=== PATIENT | male | born 1965 | race Caucasian/White ===

== ENCOUNTER 2022-12-18 10:18 | Emergency (ER) | payer OTHER, SELFPAY ==
--- NOTE | 2022-12-18 10:31 | ED.DENTAL ---
HPI - Dental/Oral General Chief complaint: Dental/Oral Stated complaint: tooth inf Source: patient and RN notes reviewed History of Present Illness HPI Narrative: 57 yo M presents to urgent care with complaints of left upper tooth pain. Pt states he was brushing his teeth 2 nights ago and his tooth broke at that time. Pt woke up yesterday morning with some pain in the area so he took some Advil. Pt states he was busy all day yesterday moving his son to college but when he got home last night, he had to take a couple more Advil. Pt states he woke up this morning and noticed more swelling to his left side of face and continued pain. Pt denies any fevers or chills but reports feeling clammy earlier. Denies any chest pain, SOB, trouble swallowing, or vomiting. Related Data Allergies Allergy/AdvReac Type Severity Reaction Status Date / Time No Known Allergies Allergy Verified 12/18/22 10:40 Review of Systems Review of Systems: CONSTITUTIONAL: Denies fever, chills, or sweats. EYES: Denies visual changes, redness, or discharge. ENT: Denies otalgia and sore throat. Left upper tooth pain CARDIOVASCULAR: Denies chest pain, palpitations, or edema. RESPIRATORY: Denies cough or dyspnea. GASTROINTESTINAL: Denies abdominal pain, nausea, vomiting, or diarrhea. GENITOURINARY: Denies dysuria or hematuria. SKIN: Denies rash or itching. MUSCULOSKELETAL: Denies back pain, joint pain, or myalgia. NEUROLOGIC: Denies headache, numbness, or weakness. Pertinent positives per HPI. PMFSH Social History Social History Smoking status: Heavy tobacco smoker Alcohol intake: current Comments At the time of my signature, I reviewed and agree with the nursing past medical, surgical, social, and family history. There is no relevant family history pertinent to the patient complaint. Exam Narrative: GENERAL: This is a well-nourished, well-developed patient, in no apparent distress. HEAD: normocephalic, atraumatic. EYES: Sclera clear/white. Vision is grossly intact. EARS: External ears normal, auditory canals clear and without drainage, TMs normal without perforation. Hearing grossly intact. MOUTH: loose tooth #14 with adjacent swelling. Left sided cheek swelling. NOSE: External nose normal with no obvious nasal discharge, nares without redness, no rhinorrhea. THROAT: Mucous membranes moist, posterior pharynx clear. NECK: Neck supple, non-tender without lymphadenopathy, masses or thyromegaly. CARDIOVASCULAR: Regular rate RESPIRATORY: No respiratory distress SKIN: warm, intact with no suspicious lesions or rash, good texture and turgor. NEURO: awake, alert, and oriented to person, place and time. There were no obvious focal neurologic abnormalities. Course Course Level of Care: Express Care Visit Vital Signs Vital signs: Reviewed MDM - Dental/Oral MDM Narrative Medical decision making narrative: Take antibiotic until it's gone. Brushing teeth at least twice daily with gentle flossing. Avoid temperature extremes when you eat. Salt gargle to rinse your mouth after every meal You may apply ice to the face to reduce pain/swelling. For pain, you may take: Tylenol 650-1000mg by mouth every 4-6 hours. Do not exceed 4000mg in 24 hours. Advil (Ibuprofen) 600 mg by mouth every 6 hours. Do not exceed 2400mg in 24 hours. Also, recommend regular dental check up one-two times a year to prevent tooth decay and other periodontal disease. Follow-up with the dentist as soon as possible. See the list provided Pt has a dentist he will call tomorrow. Differential Diagnosis Differential diagnosis: Likely gingival abscess, toothache and dental abscess Critical Care Time Critical Care Time Critical Care Time: No Discharge Plan Discharge Clinical Impression: Dental abscess Patient Disposition: Home, Self-Care Condition: Stable Instructions: Antibiotic Form, Dental Abscess (ED) Additional Instructions: Take ant
[2022-12-18 10:34] VITALS: BP 155/76; PULSE 67; RESP 20; TEMP 36.6; O2SAT 99
== END 2022-12-18 10:49 | disposition home or self-care (01) ==
PROVIDERS: Emergency Provider Nurse Practitioner Family; PCP Family Medicine
DX: K04.7 Periapical abscess without sinus (principal)
CPT/HCPCS: 99203; G0463

== ENCOUNTER 2024-11-06 09:34 | Outpatient (CLI) | payer OTHER, SELFPAY ==
--- OUTSIDE RECORDS SUMMARY | 2024-11-06 09:41 | XMS_ITS | Clinical Summary ---
Author Organization [facility] Address [address] [place] [address] Phone Care Team Providers Care Still Operator Gin Name Role Phone Lopez Barrett MD Primary Care Provider Allergies No known active allergies Social History Tobacco Use Types Packs/Day Years Used Date Smoking Tobacco: Every Day Sex and Gender Information Value Date Recorded Sex Assigned at Not on file Legal Sex Male 11:00 PM CDT Gender Identity Not on file Sexual Orientation Not on file Last Filed Vital Signs Vital Sign Reading Time Taken Comments Blood Pressure 140/86 03/17/2017 11:00 AM WINDOWS DEPLOYMENT TECHNICIAN Pulse 80 03/17/2017 11:00 AM WINDOWS DEPLOYMENT TECHNICIAN Temperature - - Respiratory Rate - - Oxygen Saturation - - Inhaled Oxygen Concentration - - Weight 127 kg (280 lb) 03/17/2017 10:42 AM WINDOWS DEPLOYMENT TECHNICIAN Height 193 cm (6' 4) 03/17/2017 10:42 AM WINDOWS DEPLOYMENT TECHNICIAN Body Mass Index 34.08 03/17/2017 10:42 AM WINDOWS DEPLOYMENT TECHNICIAN Plan of Treatment Health Maintenance Due Date Last Done Comments Hepatitis C Virus (HCV) Screening 1965 TdaP Immunization 1964 Hepatitis B Immunization (1 of 3 - 19+ 3-dose series) 11/21/1983 Colonoscopy 2009 Colorectal Cancer Screening 2009 Cologuard 2014 Immunochemical Fecal Occult Blood 2014 Pneumococcal Immunization (5 0+ years) (1 of 1 - PCV) 2014 Zoster Immunization (1 of 2) 2014 PSA Discussion 11/21/2019 Influenza Immunization (#1) 2023 SARS-COV-2 Immunization ( - 2023-25 season) 2023 Respiratory Syncytial Virus (RSV) Immunization (Adult) (1 - 1-dose 75+ series) 11/21/2039 Meningococcal Immunization (ACWY) Aged Out No longer eligible based on patient's age to complete this topic Pneumococcal Immunization Combined Aged Out No longer eligible based on patient's age to complete this topic Rotavirus Immunization Aged Out No lo nger eligible based on patient's age to complete this topic Care Teams Still Operator Gin Relationship Specialty Start Date End Date Lopez Barrett MD [address] [place] [address] PCP - General Family Medicine 03/17/17
--- OUTSIDE RECORDS SUMMARY | 2024-11-06 09:41 | XMS_ITS | Encounter Summary ---
Author Organization [facility] Address [address] [place] [address] Care Team Providers Care Sprayer Automatic Spray Machine Name Role Phone Unavailable Primary Care Provider Unavailabl e Encounter Details Date Type Department Care Team (Late st Contact Info) Description 11/05/2024 Lab Requisition [facility] - DermPath Lab [address] [place] [phone] Loly Gabriel MD [address] [place] [address] Social History Tobacco Use Types Packs/Day Years Used Date Smoking Tobacco: Never Assessed Sex and Gender Information Value Date Recorded Sex Assigned at Not on file Legal Sex Male 9:35 AM CDT Gender Identity Not on file Sexual Orientation Not on file documented as of this encounter Plan of Treatment Scheduled Orders Name Type Priority Associated Diagnoses Orde r Schedule DERMATOPATHOLOGY Pathology Cytology Routine Ordered: 11/05/2024 documented as of this encounter Visit Diagnoses Not on filedocumented in this encounter
--- OUTSIDE RECORDS SUMMARY | 2024-11-06 09:41 | XMS_ITS | Clinical Summary ---
Author Organization [facility] Address [address] [facility] [place] [address] Care Team Providers Care Computer Bookkeeper Name Role Phone Unavailable Primary Care Provider Unavailabl e Source Comments [facility],non-owned Affiliates and Associated Physician Practices is amultiple site organization consisting of ambulatory clinics and hospital sitesin [place], [place], [place] and [place]. This disclosure is being madepursuant to the Care Everywhere program and may not contain all information available regarding this patient. Last updated 18.[facility] Encounters Date Type Department Care Team Description 11/05/2024 Lab Requisition [facility] - DermPath Lab [address] [facility] [place] [phone] Loly Gabriel MD from Last 3 Months Social History Tobacco Use Types Packs/Day Years Used Date Smoking Tobacco: Never Assessed Sex and Gender Information Value Date Recorded Sex Assigned at Not on file Legal Sex Male 9:35 AM CDT Gender Identity Not on file Sexual Orientation Not on file Plan of Treatment Health Maintenance Due Date Last Done Comments COLOGUARD (AGES 45-75) - COL ON CA SCREENING 1964 COLON MONITORING 1964 COLONOSCOPY - COLON CA SCREENING 1964 CT COLONOGRAPHY - COLON CA SCREENING 1964 Colorectal Cancer Screening 1964 FIT - COLON CA SCREENING 1964 FLEX SIG - COLON CA SCREENING 1964 LIPID TESTING 1964 HIV SCREENING 11/21/1979 HEPATITIS C SCREENING 11/16/1982 DTAP/TDAP/TD VACCINES (1 - Tdap) 11/21/1983 HEPATITIS B VACCINE (1 of 3 - 19+ 3-dose series) 11/21/1983 PNEUMOCOCCAL VACCINE 50+ (1 of 1 - PCV) 2014 ZOSTER VACCINE (1 of 2) 2014 COVID-19 VACCINE (1 - 2023-2 5 season) 2023 DEPRESSION SCREENING 05/01/2024 INFLUENZA VACCINE (#1) 2024 HIB VACCINE Aged Out No longer eligi ble based on patient's age to complete this topic HPV VACCINE Aged Out No longer eligi ble based on patient's age to complete this topic MENINGOCOCCAL (Group B) VACC INE SHARED DECISION-MAKING Aged Out No longer eligibl e based on patient's age to complete this topic MENINGOCOCCAL GROUPS A/C/Y/W VACCINE Aged Out No longer eligible b ased on patient's age to complete this [place] [address] [place] [address] [employer]
--- OUTSIDE RECORDS SUMMARY | 2024-11-06 09:41 | XMS_ITS | Encounter Summary ---
Author Organization [facility] Address [address] [facility] [place] [address] Care Team Providers Care Blow Mold Technician Name Role Phone Unavailable Primary Care Provider Unavailabl e Encounter Details Date Type Department Care Team (Late st Contact Info) Description 08/01/2024 Lab Requisition [facility] - DermPath Lab [address] [facility] [place] [address] Angela Mckenna MD [address] [facility] [address] [place] [address] Social History Tobacco Use Types Packs/Day Years Used Date Smoking Tobacco: Never Assessed Sex and Gender Information Value Date Recorded Sex Assigned at Not on file Legal Sex Male 9:35 AM CDT Gender Identity Not on file Sexual Orientation Not on file documented as of this encounter Plan of Treatment Not on file documented as of this encounter Procedures Procedure Name Priority Date/Time Associated Diagnosis Comments DERMATOPATHOLOGY Routine 08/01/2024 9:17 AM CDT documented in this encounter Results * DERMATOPATHOLOGY (08/01/2024 9:17 AM CDT) Case Report Dermatopathology Report Case: [id number] Authorizing Provider: Angela Mckenna MD Collected: 08/01/2024 09:17 AM Ordering Location: [facility] Physician [facility] - Received: 08/02/2024 08:00 AM DermPath Lab Pathologist: Ashli Deleon MD Specimen: Skin, left ant scalp 2:55 PM CDT DERMATOPATHOLOGY LABORATORY Final Diagnosis Specimen A. 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 The specimen consists of a shave biopsy measuring [id number] mm. Jar 0. 2:55 PM CDT DERMATOPATHOLOGY LABORATORY Microscopic Description Specimen A. SKIN, left ant scalp: The epidermis shows parakeratosis, full thickness disorderly maturation of keratinocytes, mitoses at different levels, and dyskeratotic cells. Focal nests are present in the dermis. 2:55 PM CDT DERMATOPATHOLOGY LABORATORY Disclaimer An external and internal positive and negative controls are appropriate for the histochemical, immunohistochemical and immunofluorescence stain(s) in this case (if any), except where stated explicitly. The performance characteristics of the stain(s) cited in this report were developed and its performance characteristic determined by the Dermatopathology Laboratory at [facility], directed by Dr. Isaak Santizo. These tests need not be, and therefore are not, approved by the [place] Food and Drug Administration. The tests are used for clinical purposes. Billing Codes Specimen Charges Stain Charges 36173 1 2:55 PM CDT DERMATOPATHOLOGY LABORATORY Embedded Images 2:55 PM CDT DERMATOPATHOLOGY LABORATORY Pathology/Cytolo gy TISSUE SPECIMEN FROM SKIN / Unknown 08/01/2024 9:17 AM CDT 08/02/2024 8:00 AM CDT us Angela Mckenna MD LAB - PATHOLOGY/CYTOLOGY OR DERABLES Final Result DERMATOPATHOLOGY LABORATORY [facility] - Department of Dermatology [address], [address] [phone] documented in this encounter Visit Diagnoses Not on filedocumented in this encounter
[2024-11-06 10:02] LABS: Hematocrit 47.3 % (42.0-52.0); Hemoglobin 15.8 g/dL (14.0-18.0); Immature Granulocyte Percent A 0.2 % (0-0.5); Lymphocytes Absolute Auto 1.85 K/mm3 (0.9-3.2); Mean Corpuscular HGB Conc 33.4 g/dl (32-36); Mean Corpuscular Hemoglobin 31.4 pg (26-34); Mean Corpuscular Volume 94.0 fl (80-100); Nucleated Red Blood Cells Absolute Auto 0.000 K/mm3 (0.0-0.012); Nucleated Red Blood Cells Perc 0.0 % (0.0-0.2); Platelet Count Result 198 k/mm3 (150-375); Red Blood Count 5.03 M/mm3 (4.6-6.20); White Blood Count 6.0 K/mm3 (4.5-10.0)
[2024-11-06 10:41] LABS: Add Urine Microscopic? NO; Appearance Urine Clear (Clear); Glucose Urine UA Negative (Negative); Leukocyte Esterase Ur Negative LEU/UL (Negative); Nitrate Urine Negative (Negative); Specific Grav Ur 1.016 (1.001-1.035)
[2024-11-06 10:50] LABS: Thyroid Stimulating Hormone Reflex 0.700 uIU/mL (0.465-4.68)
[2024-11-06 16:03] LABS: Alanine Aminotransferase 28 U/L (6-50); Albumin Level 3.9 g/dL (3.5-5.1); Alkaline Phosphatase 61 U/L (38-126); Anion Gap 6 mmol/L (4-12); Aspartate Amino Transferase 26 U/L (17-59); Bilirubin,Total 0.3 mg/dL (0.2-1.3); Blood Urea Nitrogen 11 mg/dL (9-20); Calcium 9.3 mg/dL (8.4-10.2); Carbon Dioxide 25 mmol/L (22-30); Chloride 109 mmol/L (98-107); Cholesterol 143 mg/dL (0-200); Estimated Glomerular Filt Rate > 60; Glucose 106 mg/dL (65-110); HDL Direct 35 mg/dL; Potassium 4.0 mmol/L (3.4-5.0); Sodium 140 mmol/L (137-145); Total Protein 6.7 g/dL (6.3-8.2); Triglycerides 83 mg/dL (<150)
[2024-11-06 16:34] LABS: Prostate Specific Antigen 0.8 ng/mL (< OR = 4.0)
== END 2024-11-06 09:35 | disposition home or self-care (01) ==
LOC: ANHLAB 09:36
PROVIDERS: PCP Family Medicine
DX: Z00.00 Encounter for general adult medical examination without abnormal findings (principal)
CPT/HCPCS: 36415; 80053; 80061; 81003; 84153; 84443; 85025; G0103

== ENCOUNTER 2024-11-07 11:52 | Inpatient (IN) | payer OTHER, SELFPAY ==
[2024-11-07] VITALS (20 sets, daily range): BP systolic 131–167; BP diastolic 65–89; PULSE 43–58; RESP 8–19; TEMP 36.4–36.8; O2SAT 98–100; BMI 38.6
--- NOTE | ~2024-11-07 | XR_ITS ---
EXAM/PROCEDURE: XR chest 1V portable - 11/07/2024 12:30 CDT HISTORY: 58 years old Male with chest pain TECHNIQUE: AP view(s) of the chest. COMPARISON: None available. FINDINGS: LUNGS/ PLEURA: No focal consolidation. No appreciable pneumothorax or large pleural effusion. HEART/ MEDIASTINUM: Heart appears normal in size. BONES: No acute osseous abnormality. OTHER: Visualized upper abdomen is unremarkable. IMPRESSION: No acute process. Reviewed, dictated and finalized at location A. IMPRESSION: No acute process.
--- NOTE | 2024-11-07 11:53 | ECG_ITS ---
Test Date: 2024-11-07 12:02:07 Measurements Intervals [place] Rate: 47 P: 56 ID: [id number] QRS: 42 QRSD: 108 T: 113 QT: 440 QTc: 392 Interpretive Statements SINUS BRADYCARDIA WITH FIRST DEGREE AV BLOCK NONSPECIFIC ST & T-WAVE ABNORMALITY No previous ECG available for comparison Electronically Signed On 11-07-2024 13:18:04 CDT by Maurisio Pierce M.D.
--- OUTSIDE RECORDS SUMMARY | 2024-11-07 11:54 | XMS_ITS | Clinical Summary ---
Author Organization [facility] Address [address] [place] [address] Phone Care Team Providers Care Director Veterinary Name Role Phone Lopez Barrett MD Primary [...] Comments Blood Pressure 140/86 03/17/2017 11:00 AM MORTGAGE PROFESSIONAL Pulse 80 03/17/2017 11:00 AM MORTGAGE PROFESSIONAL Temperature - - Respiratory Rate - - Oxygen Saturation - - Inhaled Oxygen Concentration - - Weight 127 kg (280 lb) 03/17/2017 10:42 AM MORTGAGE PROFESSIONAL Height 193 cm (6' 4) 03/17/2017 10:42 AM MORTGAGE PROFESSIONAL Body Mass Index 34.08 03/17/2017 10:42 AM MORTGAGE PROFESSIONAL Plan of Treatment Health Maintenance Due Date [...] age to complete this topic Care Teams Director Veterinary Relationship Specialty Start Date End Date Lopez Barrett MD [address] [place] [address] PCP - General Family Medicine 03/17/17
--- OUTSIDE RECORDS SUMMARY | 2024-11-07 11:54 | XMS_ITS | Encounter Summary ---
Author Organization [facility] Address [address] [facility] [place] [address] Care Team Providers Care Emergency Vehicle Operations Instructor Name Role Phone Unavailable Primary Care Provider Unavailabl e Encounter Details Date Type Department Care Team (Late st Contact Info) Description 11/05/2024 Lab Requisition [facility] Lab [address] [place] [phone] Loly Gabriel MD [address] [place] [address] Social History Tobacco Use Types Packs/Day Years Used Date Smoking Tobacco: Never Assessed Sex and Gender Information Value Date Recorded Sex Assigned at Not on file Legal Sex Male 9:35 AM CDT Gender Identity Not on file Sexual Orientation Not on file documented as of this encounter Plan of Treatment Pending Results Name Type Priority Associated Diagnoses Date /Time DERMATOPATHOLOGY Pathology Cytology Routine 11/05/2024 3:32 PM CDT documented as of this encounter Visit Diagnoses Not on filedocumented in this encounter
--- OUTSIDE RECORDS SUMMARY | 2024-11-07 11:54 | XMS_ITS | Encounter Summary ---
Author Organization [facility] Address [address] [place] [address] Care Team Providers Care Ict Programmer Name Role Phone Unavailable Primary Care Provider Unavailabl e Encounter Details Date Type Department Care Team (Late st Contact Info) Description 08/01/2024 Lab Requisition [facility] - DermPath Lab [address] [facility] [place] [address] Angela Mckenna MD [address] [facility] [address] [place] [address] Social History Tobacco Use Types Packs/Day Years [...] AM CDT) Case Report Dermatopathology Report Case: [id number] Authorizing Provider: Angela Mckenna MD Collected: 08/01/2024 09:17 AM Ordering Location: [facility] Physician [facility] - Received: 08/02/2024 08:00 AM DermPath Lab [...] specimen consists of a shave biopsy measuring 25f23k1 mm. Jar 0. 2:55 PM CDT DERMATOPATHOLOGY [...] characteristic determined by the Dermatopathology Laboratory at [facility], directed by Dr. Isaak Santizo. These tests need not be, and therefore are not, approved by the [place] Food and Drug Administration. The tests are used for clinical purposes. Billing Codes Specimen Charges Stain Charges 28266 1 2:55 PM CDT DERMATOPATHOLOGY LABORATORY Embedded Images 2:55 PM CDT DERMATOPATHOLOGY LABORATORY Pathology/Cytolo gy TISSUE SPECIMEN FROM SKIN / Unknown 08/01/2024 9:17 AM CDT 08/02/2024 8:00 AM CDT us Angela Mckenna MD LAB - PATHOLOGY/CYTOLOGY OR DERABLES Final Result DERMATOPATHOLOGY LABORATORY [facility] - Department of Dermatology [address] [phone] documented in this encounter Visit Diagnoses Not on filedocumented in this encounter
--- OUTSIDE RECORDS SUMMARY | 2024-11-07 11:54 | XMS_ITS | Clinical Summary ---
Author Organization [facility] Address [address] [facility] [place] [address] Care Team Providers Care Nicking Machine Operator Name Role Phone Unavailable Primary Care Provider Unavailabl e Source Comments [facility],non-owned Affiliates and Associated Physician Practices is amultiple site organization consisting of ambulatory clinics and hospital sitesin [place], [place], [place] and [place]. This disclosure is being madepursuant to the Care Everywhere program and may not contain all information available regarding this patient. Last updated 18.[facility] Encounters Date Type Department Care Team Description 11/05/2024 Lab Requisition [facility] - DermPath Lab [address] [facility] [place] [phone] Loly Gabriel MD from Last 3 Months [...] to complete this [place] [address] [place] [address] [employer]
[2024-11-07 12:11] LABS: Hematocrit 48.5 % (42.0-52.0); Hemoglobin 16.0 g/dL (14.0-18.0); Immature Granulocyte Percent A 0.2 % (0-0.5); Lymphocytes Absolute Auto 1.74 K/mm3 (0.9-3.2); Mean Corpuscular HGB Conc 33.0 g/dl (32-36); Mean Corpuscular Hemoglobin 31.1 pg (26-34); Mean Corpuscular Volume 94.2 fl (80-100); Nucleated Red Blood Cells Absolute Auto 0.000 K/mm3 (0.0-0.012); Nucleated Red Blood Cells Perc 0.0 % (0.0-0.2); Platelet Count Result 199 k/mm3 (150-375); Red Blood Count 5.15 M/mm3 (4.6-6.20); White Blood Count 5.6 K/mm3 (4.5-10.0)
[2024-11-07 12:26] LABS: INR 1.0; Prothrombin Time 12.8 Seconds (11.1-14.7)
[2024-11-07 12:27] LABS: Partial Thromboplastin Time 26.4 Seconds (22.3-36.8)
[2024-11-07 12:30] LABS: Alanine Aminotransferase 25 U/L (6-50); Albumin Level 4.3 g/dL (3.5-5.1); Alkaline Phosphatase 61 U/L (38-126); Anion Gap 6 mmol/L (4-12); Aspartate Amino Transferase 29 U/L (17-59); Bilirubin,Total 0.5 mg/dL (0.2-1.3); Blood Urea Nitrogen 13 mg/dL (9-20); Calcium 9.5 mg/dL (8.4-10.2); Carbon Dioxide 25 mmol/L (22-30); Chloride 108 mmol/L (98-107); Estimated CRCL calculation 114 ml/min; Estimated Glomerular Filt Rate > 60; Glucose 112 mg/dL (65-110); Lipase 66 U/L (23-300); Potassium 4.1 mmol/L (3.4-5.0); Sodium 139 mmol/L (137-145); Total Protein 7.3 g/dL (6.3-8.2)
[2024-11-07 12:41] LABS: Troponin I 0.446 ng/mL (0.000-0.034)
--- NOTE | 2024-11-07 12:55 | ED_ITS ---
HPI - Chest Pain General Chief Complaint: Chest Pain Stated Complaint: chest pain Time Seen by Provider: 11/07/24 12:44 History of Present Illness HPI narrative: Pt presents with episode of chest pain last night that lasted 15 minutes and resolved after tylenol. Pt went to Dr Barrett's office and was sent to ED. Pt had another similar episode a couple of weeks ago when mowing yard that resolved with rest. Pt is smoker but no other risk factors for cad. Pt not having Cp now. Related Data Allergies Allergy/AdvReac Type Severity Reaction Status Date / Time No Known Allergies Allergy Verified 11/07/24 13:26 Review of Systems 2 Review of Systems: All systems reviewed & are unremarkable except as noted in HPI and below PMFSH Social History Social History Smoking status: Never smoker Alcohol intake: never Substance use: never Do You Feel Safe in your Home?: Yes Lack of Transportation: No Lack of Food: Never True Current Housing: I Have Housing Concerned About Future Housing: No Difficulty Paying Gas/Electric Bills: No Difficulty Paying for Meds: No Currently Unemployed: No Education: Trade/Vocational Certificate Difficulty w/ Childcare or Family Care: No Spiritual care concerns: No Exam 2 Const: General: healthy appearing and no acute distress Nutritional Appearance: well nourished Orientation/consciousness: patient oriented x3 Limitations: no limitations HENMT: Head: normal to inspection Chest: Chest palpation & inspection: normal inspection of the chest Resp: Effort & Inspection: normal respiratory effort Auscultation: clear to auscultation bilaterally Cardio: Rate: regular rate Rhythm: regular rhythm GI: Auscultation: normal bowel sounds Skin: General skin exam: normal color Wounds: no wounds Neuro: General: patient oriented x3, moves all extremities and no focal motor deficits Cranial nerves: Yes Nystagmus not present Speech: normal speech Extrem: General: normal to inspection and no clubbing, cyanosis or edema Psych: Mental Status: mental status grossly normal Affect: normal affect Attitude: cooperative Course Vital Signs Vital signs: Vital Signs Temperature 97.6 F 11/07/24 12:09 Pulse Rate 58 L 11/07/24 12:09 Respiratory Rate 16 11/07/24 12:09 Blood Pressure 167/89 H 11/07/24 12:09 Pulse Oximetry 99 11/07/24 12:09 Oxygen Delivery Room Air 11/07/24 12:09 Temperature 97.9 F 11/07/24 17:30 Pulse Rate 43 L 11/07/24 17:30 Respiratory Rate 16 11/07/24 17:30 Blood Pressure 141/72 H 11/07/24 17:30 Pulse Oximetry 100 11/07/24 17:30 Oxygen Delivery Room Air 11/07/24 14:49 MDM - Chest Pain MDM Narrative Medical decision making narrative: Pt had episode of CP last night that resolved after 15 minutes. Pt had another similar episode when mowing 2 weeks ago. Pt pain free now. ekg shows t wave inversion in 1 avl. roberto work up for unstable angina. trop .446 remainder of labs fine. Discussed with Dr Deluca and agrees to consult. Discussed with Mariana Valadez agrees to admit. Lab Data 11/07/24 17:51 11/07/24 12:05 Labs: Lab Results 11/07/24 Range/Units 12:05 WBC 5.6 (4.5-10.0) K/mm3 RBC 5.15 (4.6-6.20) M/mm3 Hgb 16.0 (14.0-18.0) g/dL Hct 48.5 (42.0-52.0) % MCV 94.2 (80-100) fl MCH 31.1 (26-34) pg MCHC 33.0 (32-36) g/dl RDW 13.1 (11.5-14.5) % Plt Count 199 (150-375) k/mm3 MPV 8.9 (7.4-10.4) fl Immature Gran % (Auto) 0.2 (0-0.5) % Neut % (Auto) 58.8 (45.5-73.1) % Lymph % (Auto) 31.0 (18.3-44.2) % [place] % (Auto) 7.5 (2.6-8.5) % Eos % (Auto) 2.3 (0-4.4) % Baso % (Auto) 0.2 (0.2-1.2) % Lymph # (Auto) 1.74 (0.9-3.2) K/mm3 [place] # (Auto) 0.4 (0.1-0.6) K/mm3 Eos # (Auto) 0.1 (0-0.3) K/mm3 Baso # (Auto) 0.0 (0.0-0.1) K/mm3 Abs Immat Gran (auto) 0.01 (0.00-0.031) K/mm3 Absolute Neuts (auto) 3.3 (1.3-6.7) K/mm3 Absolute Nucleated RBC 0.000 (0.0-0.012) K/mm3 Nucleated RBC % 0.0 (0.0-0.2) % PT 12.8 (11.1-14.7) Seconds INR 1.0 APTT 26.4 (22.3-36.8) Seconds Sodium 139 (137-145) mmol/L Potassium 4.1 (3.4-5.0) mmol/L Chloride 108 H (98-107) mmol/L Carbon Dioxide 25 (22-30) mmol/L Anion Gap 6 (4-12) mmol/L BUN 13 (9-20) mg/dL Creatinine 0.90 (0.7-1.3) mg/dL Estim Creat Clear Calc 114 ml/min Estimated GFR > 60 (59 - ) Glucose 112 H (65-110) mg/dL Calcium 9.5 (8.4-10.2) mg/dL Total Bilirubin 0.5 (0.2-1.3) mg/dL AST 29 (17-59) U/L ALT 25 (6-50) U/L Alkaline Phosphatase 61 (38-126) U/L Troponin I 0.446 H* (0.000-0.034) ng/mL NT-Pro-B Natriuret Pep 863 H (19.9-100) pg/mL Total Protein 7.3 (6.3-8.2) g/dL Albumin 4.3 (3.5-5.1) g/dL Lipase 66 (23-300) U/L Critical Care Time Critical Care Time Critical Care Time: Yes Total Critical Care Time: 40 Discharge Plan Discharge Clinical Impression: Acute non-ST elevation myocardial infarction (NSTEMI) Patient Disposition: Still a Patient Condition: Improved
[2024-11-07 13:05] LABS: NT Pro B Type Natriuretic Pept 863 pg/mL (19.9-100)
[2024-11-07] MEDS: ASPIRIN 81 MG CHEWABLE TABLET 324 MG PO (13:17)
[2024-11-07] MEDS: ACETAMINOPHEN 325 MG TABLET 650 MG PO (13:18)
[2024-11-07] MEDS: NITROGLYCERIN OINTMENT 1 INCH DOSE TRANSDERM (13:20)
--- OUTSIDE RECORDS SUMMARY | 2024-11-07 13:24 | XMS_ITS | Encounter Summary ---
Author Organization [facility] Address [address] [facility] [place] [address] Care Team Providers Care Floor Refinisher Name Role Phone Unavailable Primary Care Provider Unavailabl e Encounter Details Date Type Department Care Team (Late st Contact Info) Description 11/05/2024 Lab Requisition [facility] Lab [address] [place] [phone] Loly Gabriel MD [address] [place] [address] Social History Tobacco Use Types [...]
--- OUTSIDE RECORDS SUMMARY | 2024-11-07 13:24 | XMS_ITS | Clinical Summary ---
Author Organization [facility] Address [address] [place] [address] Care Team Providers Care Candlemaker Name Role Phone Unavailable Primary Care Provider Unavailabl e Source Comments [facility],non-owned Affiliates and Associated Physician Practices is amultiple site organization consisting of ambulatory clinics and hospital sitesin [place], [place], [place] and [place]. This disclosure is being madepursuant to the Care Everywhere program and may not contain all information available regarding this patient. Last updated 18.[facility] Encounters Date Type Department Care Team Description 11/05/2024 Lab Requisition [facility] - DermPath Lab [address] [place] [id number] Loly Gabriel MD from Last 3 Months [...] to complete this [place] [address] [employer]
--- OUTSIDE RECORDS SUMMARY | 2024-11-07 13:24 | XMS_ITS | Clinical Summary ---
Author Organization [facility] Address [address] [place] [address] Phone Care Team Providers Care Tool And Equipment Rental Clerk Name Role Phone Lopez Barrett MD Primary [...] Comments Blood Pressure 140/86 03/17/2017 11:00 AM ACID DUMPER Pulse 80 03/17/2017 11:00 AM ACID DUMPER Temperature - - Respiratory Rate - - Oxygen Saturation - - Inhaled Oxygen Concentration - - Weight 127 kg (280 lb) 03/17/2017 10:42 AM ACID DUMPER Height 193 cm (6' 4) 03/17/2017 10:42 AM ACID DUMPER Body Mass Index 34.08 03/17/2017 10:42 AM ACID DUMPER Plan of Treatment Health Maintenance Due Date [...] age to complete this topic Care Teams Tool And Equipment Rental Clerk Relationship Specialty Start Date End Date Lopez Barrett MD [address] [place] [address] PCP - General Family Medicine 03/17/17
--- OUTSIDE RECORDS SUMMARY | 2024-11-07 13:24 | XMS_ITS | Encounter Summary ---
Author Organization [facility] Address [address] [place] [address] Care Team Providers Care Food General Manager Name Role Phone Unavailable Primary Care Provider Unavailabl e Encounter Details Date Type Department Care Team (Late st Contact Info) Description 08/01/2024 Lab Requisition [facility] - DermPath Lab [address] [facility] [place] [address] Angela Mckenna MD [address] [facility] [address] [place] [address] Social History Tobacco Use Types Packs/Day Years [...] AM CDT) Case Report Dermatopathology Report Case: [id number] Authorizing Provider: Angela Mckenna MD Collected: 08/01/2024 09:17 AM Ordering Location: [facility] - Received: 08/02/2024 08:00 AM DermPath [...] specimen consists of a shave biopsy measuring [id number] mm. Jar 0. 2:55 PM CDT DERMATOPATHOLOGY [...] characteristic determined by the Dermatopathology Laboratory at [facility], directed by Dr. Isaak Santizo. These tests need not be, and therefore are not, approved by the [place] Food and Drug Administration. The tests are used for clinical purposes. Billing Codes Specimen Charges Stain Charges 79653 1 2:55 PM CDT DERMATOPATHOLOGY LABORATORY Embedded Images 2:55 PM CDT DERMATOPATHOLOGY LABORATORY Pathology/Cytolo gy TISSUE SPECIMEN FROM SKIN / Unknown 08/01/2024 9:17 AM CDT 08/02/2024 8:00 AM CDT us Angela Mckenna MD LAB - PATHOLOGY/CYTOLOGY OR DERABLES Final Result DERMATOPATHOLOGY LABORATORY [facility] - Department of Dermatology [address], [address] Floor [address] [phone] documented in this encounter Visit Diagnoses Not on filedocumented in this encounter
[2024-11-07] MEDS: ENOXAPARIN 100 MG/ML SYRINGE 99 MG SUB-Q (13:35)
[2024-11-07] MEDS: ENOXAPARIN 30 MG/0.3 ML SYRINGE SUB-Q (13:36)
--- NOTE | 2024-11-07 15:05 | P.CONCA_ITS ---
Assessment and Plan Assessment and plan (1) Acute non-ST elevation myocardial infarction (NSTEMI): Code(s): I21.4 - Non-ST elevation (NSTEMI) myocardial infarction Status: Acute Plan -NSTEMI -Sinus bradycardia Plan: -Patient had chest pain with exertion in the past but now chest pain at rest with troponin elevation concerning for ACS. Recommend cardiac catheterization to further evaluate coronaries. Risks and benefits of procedure were discussed with the patient and he is agreeable to proceed. He is chest pain-free at this time. Plan for catheterization in a.m. tomorrow. Keep NPO at midnight -Trend troponin to peak -EKG p.r.n. for any chest pain -Patient received therapeutic Lovenox in the ER. Start heparin after 12 hours from last dose Lovenox -Aspirin 325 mg p.o. administered in the ER. Continue 81 mg p.o. daily -Start atorvastatin 80 mg daily -Check FLP -TTE today -Check and replace electrolytes to keep potassium greater than 4 and magnesium greater than 2 History of Present Illness History of Present Illness Consult date/time: 11/07/24 15:05 Reason For Visit: NSTEMI Narrative: 58-year-old male patient with history of obstructive sleep apnea on CPAP, hypertension, tobacco use presents with chief complaints of chest pain. Patient states he had an episode of left-sided chest pain last night that lasted for about 15 minutes and was resolved with Tylenol. Pain is a tightness across his chest without any radiation to neck, arm, jaw, back. No associated symptoms, aggravating or relieving factors. No change in pain with deep breaths or change in position. He reports 2 other episode of chest pain with exertion prior to this episode. One episode of chest pain occurred when he was mowing his yard that resolved with rest. A 2nd episode occurred when he was in the poor and also resolved with rest. Patient presented to his PCPs office today as scheduled and was sent to the ER for evaluation for this chest pain. No shortness of breath, dizziness, lightheadedness, leg swelling, recent weight gain, presyncope, syncope, palpitations, orthopnea, PND, fever, chills, abdominal pain, headache, nausea, emesis. Workup: Troponin: 0.446 NT proBNP: 863 EKG: Sinus bradycardia with rate of 47, nonspecific ST T wave abnormalities Chest x-ray: No acute cardiopulmonary pathology Past cardiac workup: Exercise treadmill test in 2017: Negative maximal stress for chest pain; borderline EKG changes Review of Systems 2 Review of Systems: Complete review of systems was performed and pertinent positives are reported in the HPI. [facility] Social History Social History Smoking status: Never smoker Alcohol intake: never Substance use: never Do You Feel Safe in your Home?: Yes Lack of Transportation: No Lack of Food: Never True Current Housing: I Have Housing Concerned About Future Housing: No Difficulty Paying Gas/Electric Bills: No Difficulty Paying for Meds: No Currently Unemployed: No Education: Trade/Vocational Certificate Difficulty w/ Childcare or Family Care: No Spiritual care concerns: No Meds Home Medications and Allergies Home Medications ?Medication ?Instructions ?Recorded ?Confirmed ?Type tadalafil 5 mg tablet (Cialis) 5 mg PO DAILY #90 tabs 09/12/24 11/07/24 Rx Allergies Allergy/AdvReac Type Severity Reaction Status Date / Time No Known Allergies Allergy Verified 11/07/24 13:26 Vital Signs Vital Signs - 24 hr 11/07/24 12:09 11/07/24 12:34 11/07/24 12:49 Temperature 36.4 C Pulse Rate 58 L 49 L 57 L Respiratory Rate 16 16 12 Blood Pressure 167/89 H Pulse Oximetry 99 100 99 Oxygen Delivery Room Air 11/07/24 13:00 11/07/24 13:02 11/07/24 13:16 Temperature Pulse Rate 48 L 52 L 46 L Respiratory Rate 8 L 11 L 12 Blood Pressure 156/86 H Pulse Oximetry 98 98 100 Oxygen Delivery 11/07/24 13:25 11/07/24 13:32 11/07/24 13:33 Temperature Pulse Rate 50 L 45 L 52 L Respiratory Rate 16 17 Blood Pressure 159/83 H Pulse Oximetry Oxygen Delivery 11/07/24 13:45 11/07/24 13:48 11/07/24 14:09 Temperature Pulse Rate 47 L 45 L 56 L Respiratory Rate 14 9 L 19 Blood Pressure 155/80 H Pulse Oximetry Oxygen Delivery 11/07/24 14:42 11/07/24 14:49 Temperature 36.6 C Pulse Rate 52 L 52 L Respiratory Rate 16 16 Blood Pressure 162/75 H Pulse Oximetry 99 99 Oxygen Delivery Room Air Exam 2 Narrative: General: Alert oriented x3, no acute distress Neck: Supple, no JVD Chest: Bilaterally clear to auscultation, no rales or rhonchi Cardiac: S1, S2 +, regular rate, regular rhythm, no murmurs or rubs Extremities: No pedal edema, no skin rash Neurologic: Alert and oriented x3, no focal neurological deficits Results Labs and Meds 11/07/24 12:05 11/07/24 12:05 Lab results: Cardiac Enzymes 11/07/24 Range/Units 12:05 AST 29 (17-59) U/L Troponin I 0.446 H* (0.000-0.034) ng/mL Coagulation 11/07/24 Range/Units 12:05 PT 12.8 (11.1-14.7) Seconds APTT 26.4 (22.3-36.8) Seconds CBC 11/07/24 Range/Units 12:05 WBC 5.6 (4.5-10.0) K/mm3 RBC 5.15 (4.6-6.20) M/mm3 Hgb 16.0 (14.0-18.0) g/dL Hct 48.5 (42.0-52.0) % Plt Count 199 (150-375) k/mm3 Lymph # (Auto) 1.74 (0.9-3.2) K/mm3 Leake # (Auto) 0.4 (0.1-0.6) K/mm3 Eos # (Auto) 0.1 (0-0.3) K/mm3 Baso # (Auto) 0.0 (0.0-0.1) K/mm3 Comprehensive Metabolic Panel 11/07/24 Range/Units 12:05 Sodium 139 (137-145) mmol/L Potassium 4.1 (3.4-5.0) mmol/L Chloride 108 H (98-107) mmol/L Carbon Dioxide 25 (22-30) mmol/L BUN 13 (9-20) mg/dL Creatinine 0.90 (0.7-1.3) mg/dL Glucose 112 H (65-110) mg/dL Calcium 9.5 (8.4-10.2) mg/dL AST 29 (17-59) U/L ALT 25 (6-50) U/L Alkaline Phosphatase 61 (38-126) U/L Total Protein 7.3 (6.3-8.2) g/dL Albumin 4.3 (3.5-5.1) g/dL Patient Weight 11/07/24 23:59 Weight 129.3 kg
--- NOTE | 2024-11-07 15:40 | ECHO_ITS ---
Patient Info Name: Neil Jimenez Age: 58 years : 1965 Gender: Male Ht: 76 in Wt: 285 lbs BSA: 2.67 m2 HR: 40 bpm BP: 162 / 75 mmHg Technical Quality: Good Exam Date: 11/07/2024 3:52 PM Patient Status: I Admit Date: 11/07/2024 Exam Type: CA echo doppler color flow Complete two-dimensional, color flow and Doppler transthoracic echocardiogram is performed with contrast to opacify the left ventricle and to improve the deliniation of the left ventricle endocardial borders. Staff Referring Physician: Niyah Collazo III Transport Tech: Benja Shirley Attending Provider: Sunil Ohara Contrast/Agitated Saline Contrast/Ag. Saline: Definity Amount: 2.00 ml Administered By: Suha Shirley Existing IV Access: Yes IV Access Condition: patent with no signs of infiltration Summary 1. There is normal biventricular size and systolic function. 2. There is mild biatrial enlargement. 3. There are no significant valvular abnormalities. Left Ventricle The left ventricle is normal in size and systolic function. There is moderate concentric left ventricular hypertrophy. The left ventricular ejection fraction is visually estimated to be 55-60%. There are no regional wall motion abnormalities. Right Ventricle The right ventricle is normal in size and systolic function. Left Atria The left atrium is mildly dilated. Right Atria The right atrium is mildly dilated. Atrial Septum The atrial septum is normal. Aortic Valve The aortic valve is trileaflet and opens well. There is no aortic regurgitation. Pulmonic Valve The pulmonic valve is not well visualized. There is mild pulmonic valve regurgitation. Mitral Valve The mitral valve is normal. Tricuspid Valve The tricuspid valve is normal. There is trace tricuspid regurgitation. Pericardium/Pleural Pericardium is normal in appearance with no evidence for significant pericardial effusion. Inferior Vena Cava Normal inferior vena cava with >50% collapse upon inspiration consistent with normal right atrial pressure, 3 mmHg. Aorta The aortic root at the level of the sinus of Valsalva measures 3.9 cm in diameter. Left Ventricular Outflow Tract Name Value Normal LVOT 2D LVOT Diameter 2.5 cm LVOT Doppler LVOT Peak Velocity 122 cm/s LVOT Peak Gradient 6 mmHg LVOT Mean Gradient 3 mmHg LVOT VTI 27 cm LVOT VTI/AV VTI Ratio 0.8 LVOT Stroke Volume 134 ml LVOT CO 5.9 l/min LVOT CI 2.2 l/min/m2 Pulmonic Valve Name Value Normal PV Doppler PV Peak Velocity 110 cm/s PV Peak Gradient 5 mmHg PV Regurgitation Doppler SD Peak End Diastolic Velocity 79 cm/s Mitral Valve Name Value Normal MV Diastolic Function MV E Peak Velocity 83 cm/s MV A Peak Velocity 53 cm/s MV E/A 1.5 MV Decel Time (PW) 234 ms Tricuspid Valve Name Value Normal TV Regurgitation Doppler TR Peak Velocity 206 cm/s TR Peak Gradient 17 mmHg Estimated PAP/RSVP RA Pressure 3 mmHg <=5 PA Systolic Pressure 20 mmHg <36 RV Systolic Pressure 20 mmHg <36 Aortic Valve Name Value Normal AV Doppler AV Peak Velocity 138 cm/s AV Peak Gradient 8 mmHg AV Mean Gradient 4 mmHg AV VTI 34 cm AV Area (Cont Eq VTI) 4.0 cm2 >=3.0 AV Area (Cont Eq Jerman) 4.3 cm2 AV DI (Jerman) 0.88 AV Regurgitation 2D LVOT Area 4.9 cm2 Ventricles Name Value Normal LV Dimensions 2D/MM IVS Diastolic Thickness (2D) 1.4 cm 0.6-1.0 LVID Diastole (2D) 5.2 cm 4.2-5.8 LVIW Diastolic Thickness (2D) 1.5 cm 0.6-1.0 LVID Systole (2D) 4.0 cm 2.5-4.0 LVOT Diameter 2.5 cm LV Mass (2D Cubed) 339.15 g 88.00-224.00 LV Mass Index (2D Cubed) 127 g/m2 49-115 Relative Wall Thickness (2D) 0.59 <=0.42 LV Fractional Shortening/Ejection Fraction 2D/MM LV Fractional Shortening (2D) 28 % 25-43 LV EF (2D Teichholz) 48 % LV Diastolic Volume (4C MOD) 219 ml LV EF (4C MOD) 58 % LV Diastolic Volume (2C MOD) 194 ml LV EF (2C MOD) 57 % LV Diastolic Volume (BP MOD) 207 ml 62-150 LV Diastolic Volume Index (BP MOD) 78 ml/m2 34-74 LV Systolic Volume (BP MOD) 90 ml 21-61 LV Systolic Volume Index (BP MOD) 34 ml/m2 11-31 LV EF (BP MOD) 57 % 52-72 LV Diastolic Length (4C) 10.7 cm LV Systolic Length (4C) 8.8 cm LV Stroke Volume (4C MOD) 127 ml Atria Name Value Normal LA Dimensions LA Volume (4C A-L) 104 ml LA Volume (BP A-L) 99 ml RA Dimensions RA Systolic Major Weldon Length (4C) 5.9 cm 2.1-2.7 RA Area (4C) 20.4 cm2 <=18.0 Report Signatures
[2024-11-07 16:03] LABS: Troponin I 0.439 ng/mL (0.000-0.034)
--- NOTE | 2024-11-07 16:16 | P.HP_ITS ---
H&P: HPI History of Present Illness Date/Time: 11/07/24 16:16 Chief Complaint: chest pain Narrative: 58-year-old male history of NATHAN on CPAP, basal cell carcinoma status post resection a few days ago, high blood pressure without diagnosis of hypertension presents the hospital with chest pain. Patient states the 1st time he had chest pain was about a week ago whenever he was doing yd work, which was relieved with rest. Today he states that he was sleeping when he was woken up with chest pain shortness a few minutes and then resolved. He presented to his PCP and recommended that he go to the hospital. Lab work shows a troponin of 0.439 followed by a 0.446, pro BNP of 863, chest no acute process, EKG shows sinus Andre a with first-degree AV block. Patient was seen by Cardiology and started on heparin drip. Review of Systems Review of Systems: 12 systems were reviewed and are negativ e except for as per HPI. [facility] Social History Social History Smoking status: Never smoker Alcohol intake: never Substance use: never Do You Feel Safe in your Home?: Yes Lack of Transportation: No Lack of Food: Never True Current Housing: I Have Housing Concerned About Future Housing: No Difficulty Paying Gas/Electric Bills: No Difficulty Paying for Meds: No Currently Unemployed: No Education: Trade/Vocational Certificate Difficulty w/ Childcare or Family Care: No Spiritual care concerns: No Meds Home Medications and Allergies Home Medications ?Medication ?Instructions ?Recorded ?Confirmed ?Type tadalafil 5 mg tablet (Cialis) 5 mg PO DAILY #90 tabs 09/12/24 11/07/24 Rx Allergies Allergy/AdvReac Type Severity Reaction Status Date / Time No Known Allergies Allergy Verified 11/07/24 13:26 Vital Signs Vital Signs - 24 hr 11/07/24 12:09 11/07/24 12:34 11/07/24 12:49 Temperature 97.6 F Pulse Rate 58 L 49 L 57 L Respiratory Rate 16 16 12 Blood Pressure 167/89 H Pulse Oximetry 99 100 99 Oxygen Delivery Room Air 11/07/24 13:00 11/07/24 13:02 11/07/24 13:16 Temperature Pulse Rate 48 L 52 L 46 L Respiratory Rate 8 L 11 L 12 Blood Pressure 156/86 H Pulse Oximetry 98 98 100 Oxygen Delivery 11/07/24 13:25 11/07/24 13:32 11/07/24 13:33 Temperature Pulse Rate 50 L 45 L 52 L Respiratory Rate 16 17 Blood Pressure 159/83 H Pulse Oximetry Oxygen Delivery 11/07/24 13:45 11/07/24 13:48 11/07/24 14:09 Temperature Pulse Rate 47 L 45 L 56 L Respiratory Rate 14 9 L 19 Blood Pressure 155/80 H Pulse Oximetry Oxygen Delivery 11/07/24 14:42 11/07/24 14:49 Temperature 97.9 F Pulse Rate 52 L 52 L Respiratory Rate 16 16 Blood Pressure 162/75 H Pulse Oximetry 99 99 Oxygen Delivery Room Air Exam Narrative: General: well appearing, appears stated age. HEENT: normocephalic, atraumatic. Mucous membranes moist. EOMI, PERRLA, bilateral sclera anicteric, no conjunctival injection. Scalp dressing clean dry intact. Neck supple without JVD, lymphadenopathy, or bruit. Respiratory: clear to ascultation bilaterally. No rales/rhonic/wheezes. Cardiovascular: Regular rate and rhythm, normal S1-S2 upon ascultation. No murmurs, rubs, or clicks. PMI is nondisplaced, capillary refill less than 3 second. Abdomen: Soft, round, no pulsatile masses, nondistended and nontender. No rebound, no guarding. No CVA tenderness, no hepatosplenomegaly. Bowel sounds present to all four quadrants. No high pitch or tinkling sounds, resonant to percussion. Extremities: No cyanosis, clubbing, or edema present. Pulses are palpable 2/2. Active ROM to all four extremities. Neuro: Alert and orientated x 4. PERRLA. Cranial nerves 2-12 intact without focal deficit. Skin: Warm, dry, and intact, without rash, erythema, or lesion. Psych: pleasant, cooperative, normal speech, normal affect, no hallucinations, no dysarthia H&P: Results Labs Labs: Short CBC 11/07/24 Range/Units 12:05 WBC 5.6 (4.5-10.0) K/mm3 Hgb 16.0 (14.0-18.0) g/dL Hct 48.5 (42.0-52.0) % Plt Count 199 (150-375) k/mm3 BMP 11/07/24 12:05 Sodium 139 Potassium 4.1 Chloride 108 H Carbon Dioxide 25 BUN 13 Creatinine 0.90 Glucose 112 H Calcium 9.5 Cardiac Enzymes 11/07/24 11/07/24 Range/Units 12:05 15:11 Troponin I 0.446 H* 0.439 H* (0.000-0.034) ng/mL Liver Function 11/07/24 Range/Units 12:05 Total Bilirubin 0.5 (0.2-1.3) mg/dL AST 29 (17-59) U/L ALT 25 (6-50) U/L Alkaline Phosphatase 61 (38-126) U/L Albumin 4.3 (3.5-5.1) g/dL Assessment and Plan Assessment and plan (1) Acute non-ST elevation myocardial infarction (NSTEMI): Code(s): I21.4 - Non-ST elevation (NSTEMI) myocardial infarction Status: Acute Assessment and Plan: Cardiology consulted EKG as needed Nitro paste Trend troponins NPO Echo pending Heparin drip Possible stent placement in the morning (2) Bradycardia: Code(s): R00.1 - Bradycardia, unspecified Status: Acute Assessment and Plan: Telemetry monitoring (3) High blood pressure determined by examination: Code(s): I10 - Essential (primary) hypertension Status: Acute Assessment and Plan: No diagnosis of hypertension Follow-up with PCP in 3 months or follow cardiology's recommendations (4) NATHAN (obstructive sleep apnea): Code(s): G47.33 - Obstructive sleep apnea (adult) (pediatric) Status: Acute Assessment and Plan: CPAP p.r.n. Quality VTE Prophylaxis VTE prophylaxis: mechanical ordered and pharmacologic ordered Hospitalist MIPS Advance Care Plan I have confirmed that the patient's Advanced Care Plan is present, code status is documented, or surrogate decision maker is listed in patient medical record.: Yes Medication Reconciliation I have utilized all available resources to obtain, update and review the patients current medications (includes all prescriptions, OTC, herbals, cannabis, and nutritional supplements).: Yes
[2024-11-07] MEDS: PERFLUTREN LIPID MICROSPHERES 1.5 ML VIAL DILUTED TO 10 ML TOTAL VOLUME IV PUSH (16:40)
--- NOTE | 2024-11-07 16:49 | IVDEFINITY ---
Prior to administration of IV Definity the patient was educated on the risks and benefits of the imaging enhancing agent including potential adverse side effects. The patient verbalized understanding. Allergies were verified. No exclusion criteria were identified and at least one of the following inclusion criteria were met: 1) physician request, 2) patient technically difficult to image (per the [place] [employer] Echocardi[employer] guidelines of two or more segments not discernable within the apical view), or 3) questionable left ventricular function. ?
--- NOTE | 2024-11-07 16:50 | ECG_ITS ---
Test Date: 2024-11-07 16:50:29 Measurements Intervals [place] Rate: 43 P: 19 DC: 185 QRS: 29 QRSD: 112 T: 113 QT: 459 QTc: 390 Interpretive Statements SINUS BRADYCARDIA INCOMPLETE RIGHT BUNDLE BRANCH BLOCK NONSPECIFIC ST & T-WAVE ABNORMALITY Electronically Signed On 11-08-2024 11:05:20 CDT by Sj Lopez D.O
[2024-11-07 18:04] LABS: Hematocrit 47.3 % (42.0-52.0); Hemoglobin 15.7 g/dL (14.0-18.0); Immature Granulocyte Percent A 0.3 % (0-0.5); Lymphocytes Absolute Auto 2.04 K/mm3 (0.9-3.2); Mean Corpuscular HGB Conc 33.2 g/dl (32-36); Mean Corpuscular Hemoglobin 31.0 pg (26-34); Mean Corpuscular Volume 93.5 fl (80-100); Nucleated Red Blood Cells Absolute Auto 0.000 K/mm3 (0.0-0.012); Nucleated Red Blood Cells Perc 0.0 % (0.0-0.2); Platelet Count Result 202 k/mm3 (150-375); Red Blood Count 5.06 M/mm3 (4.6-6.20); White Blood Count 6.5 K/mm3 (4.5-10.0)
[2024-11-07 18:18] LABS: INR 1.1; Partial Thromboplastin Time 31.6 Seconds (22.3-36.8); Prothrombin Time 13.6 Seconds (11.1-14.7)
[2024-11-07 18:36] LABS: Troponin I 0.469 ng/mL (0.000-0.034)
[2024-11-07] MEDS: WATER FOR IRRIGATION, STERILE 500 ML BOTTLE (23:50)
[2024-11-08] VITALS (27 sets, daily range): BP systolic 135–173; BP diastolic 67–91; PULSE 41–58; RESP 12–76; TEMP 36.6–36.8; O2SAT 18–100
[2024-11-08] MEDS: HEPARIN SOD/D5W 100 UNITS/ML 25,000 UNITS/250 ML BAG 10 UNITS IV CONT (01:32)
--- NOTE | 2024-11-08 06:45 | PM.PNCARD ---
Progress Note: A&P Assessment and Plan (1) Acute non-ST elevation myocardial infarction (NSTEMI): Code(s): I21.4 - Non-ST elevation (NSTEMI) myocardial infarction Status: Acute (2) Bradycardia: Code(s): R00.1 - Bradycardia, unspecified Status: Acute (3) Hypertension: Code(s): I10 - Essential (primary) hypertension Status: Acute Plan NSTEMI Hypertension-not well controlled Sinus bradycardia-asymptomatic Plan: Cardiac catheterization today. Risks and benefits of the procedure were discussed with patient in detail and he is willing to proceed. He has been NPO since midnight Continue aspirin 81 mg daily Continue atorvastatin 80 mg daily Continue heparin drip TTE Check and replace electrolytes to keep potassium greater than 4 and magnesium greater than 2 Subjective Date/time seen: 11/08/24 06:45 Interval history: Reason for encounter: NSTEMI Relevant history: No chest pain overnight or this morning. No shortness of breath. Telemetry shows sinus bradycardia with rates in the 40s to 50s. Review of Systems Cardiovascular: Comments: As per HPI Respiratory: Comments: As per HPI Exam Narrative: General: Alert oriented x3, no acute distress HEENT: He has a Band-Aid on his left head which is from recent removal of skin cancer on Monday this week. Neck: Supple, no JVD Chest: Bilaterally clear to auscultation, no rales or rhonchi Cardiac: S1, S2 +, regular rate, regular rhythm, no murmurs or rubs Extremities: No pedal edema, no skin rash Neurologic: Alert and oriented x3, no focal neurological deficits Objective Data Vital Signs Vital Signs: Vital Signs - 24 hr 11/07/24 12:09 11/07/24 12:34 11/07/24 12:49 Temperature 36.4 C Pulse Rate 58 L 49 L 57 L Respiratory Rate 16 16 12 Blood Pressure 167/89 H Pulse Oximetry 99 100 99 Oxygen Delivery Room Air 11/07/24 13:00 11/07/24 13:02 11/07/24 13:16 Temperature Pulse Rate 48 L 52 L 46 L Respiratory Rate 8 L 11 L 12 Blood Pressure 156/86 H Pulse Oximetry 98 98 100 Oxygen Delivery 11/07/24 13:25 11/07/24 13:32 11/07/24 13:33 Temperature Pulse Rate 50 L 45 L 52 L Respiratory Rate 16 17 Blood Pressure 159/83 H Pulse Oximetry Oxygen Delivery 11/07/24 13:45 11/07/24 13:48 11/07/24 14:09 Temperature Pulse Rate 47 L 45 L 56 L Respiratory Rate 14 9 L 19 Blood Pressure 155/80 H Pulse Oximetry Oxygen Delivery 11/07/24 14:42 11/07/24 14:49 11/07/24 16:00 Temperature 36.6 C Pulse Rate 52 L 52 L 45 L Respiratory Rate 16 16 Blood Pressure 162/75 H Pulse Oximetry 99 99 Oxygen Delivery Room Air 11/07/24 17:30 11/07/24 18:00 11/07/24 20:00 Temperature 36.6 C 36.8 C Pulse Rate 43 L 58 L 49 L Respiratory Rate 16 16 Blood Pressure 141/72 H 131/65 Pulse Oximetry 100 99 Oxygen Delivery 11/07/24 20:00 11/07/24 20:00 11/07/24 21:06 Temperature Pulse Rate 55 L Respiratory Rate Blood Pressure Pulse Oximetry 98 Oxygen Delivery Room Air Room Air 11/07/24 22:00 11/07/24 23:48 11/08/24 00:00 Temperature 36.8 C Pulse Rate 48 L 54 L Respiratory Rate 18 Blood Pressure 140/67 Pulse Oximetry 97 Oxygen Delivery Room Air 11/08/24 00:00 11/08/24 01:58 11/08/24 02:20 Temperature Pulse Rate 47 L 42 L 54 L Respiratory Rate Blood Pressure Pulse Oximetry 98 Oxygen Delivery 11/08/24 03:40 11/08/24 04:00 11/08/24 04:00 Temperature 36.7 C Pulse Rate 58 L 43 L Respiratory Rate 76 H Blood Pressure 135/72 Pulse Oximetry 18 L Oxygen Delivery Room Air 11/08/24 06:00 Temperature Pulse Rate 48 L Respiratory Rate Blood Pressure Pulse Oximetry Oxygen Delivery Intake/Output Intake/Output: Intake & Output 11/05/24 11/06/24 11/07/24 11/08/24 23:59 23:59 23:59 23:59 Intake Total 0 Balance 0 Meds/Results Medications: Active Medications Generic Name Dose Route Start Last Admin Trade Name Freq PRN Reason Stop Dose Admin Atorvastatin Calcium 80 mg 11/08/24 09:00 Atorvastatin 40 Mg Tablet PO DAILY D[facility] Heparin Sodium (Porcine) 4,000 units 11/07/24 15:49 Heparin Sodium 5,000 Units/Ml Vial IV PUSH PRN PRN aPTT less than 55 seconds Heparin Sodium (Porcine) 4,000 units 11/07/24 15:49 Heparin Sodium 5,000 Units/Ml Vial IV PUSH PRN PRN aPTT 55 - 70 seconds Heparin Sodium/Dextrose 25,000 units in 250 mls @ 10 mls/hr 11/08/24 01:30 11/08/24 01:32 Heparin Sodium/D5w 100 Units/Ml IV CONT 1,000 units/hr .Q24H [facility] 10 mls/hr Administration Protocol 1,000 UNITS/HR Nitroglycerin 1 inch 11/07/24 18:00 11/08/24 06:21 Nitroglycerin Ointment 1 Inch Dose TRANSDERM Not Given Q6HR [facility] Radiology Results: ITS Impressions Chest X-Ray 11/07/24 12:42 IMPRESSION: No acute process. Labs Labs: Laboratory Results - last 24 hr 11/07/24 11/07/24 11/07/24 12:05 15:11 17:51 WBC 5.6 6.5 RBC 5.15 5.06 Hgb 16.0 15.7 Hct 48.5 47.3 MCV 94.2 93.5 MCH 31.1 31.0 MCHC 33.0 33.2 RDW 13.1 13.0 Plt Count 199 202 MPV 8.9 8.9 Immature Gran % (Auto) 0.2 0.3 Neut % (Auto) 58.8 61.1 Lymph % (Auto) 31.0 31.2 [place] % (Auto) 7.5 5.8 Eos % (Auto) 2.3 1.4 Baso % (Auto) 0.2 0.2 Lymph # (Auto) 1.74 2.04 [place] # (Auto) 0.4 0.4 Eos # (Auto) 0.1 0.1 Baso # (Auto) 0.0 0.0 Abs Immat Gran (auto) 0.01 0.02 Absolute Neuts (auto) 3.3 4.0 Absolute Nucleated RBC 0.000 0.000 Nucleated RBC % 0.0 0.0 PT 12.8 13.6 INR 1.0 1.1 APTT 26.4 31.6 Sodium 139 Potassium 4.1 Chloride 108 H Carbon Dioxide 25 Anion Gap 6 BUN 13 Creatinine 0.90 Estim Creat Clear Calc 114 Estimated GFR > 60 Glucose 112 H Calcium 9.5 Total Bilirubin 0.5 AST 29 ALT 25 Alkaline Phosphatase 61 Troponin I 0.446 H* 0.439 H* 0.469 H* NT-Pro-B Natriuret Pep 863 H Total Protein 7.3 Albumin 4.3 Lipase 66
[2024-11-08 07:48] LABS: Hematocrit 46.5 % (42.0-52.0); Hemoglobin 15.5 g/dL (14.0-18.0); Immature Granulocyte Percent A 0.5 % (0-0.5); Lymphocytes Absolute Auto 1.90 K/mm3 (0.9-3.2); Mean Corpuscular HGB Conc 33.3 g/dl (32-36); Mean Corpuscular Hemoglobin 31.6 pg (26-34); Mean Corpuscular Volume 94.9 fl (80-100); Nucleated Red Blood Cells Absolute Auto 0.000 K/mm3 (0.0-0.012); Nucleated Red Blood Cells Perc 0.0 % (0.0-0.2); Platelet Count Result 197 k/mm3 (150-375); Red Blood Count 4.90 M/mm3 (4.6-6.20); White Blood Count 6.1 K/mm3 (4.5-10.0)
[2024-11-08 08:02] LABS: Partial Thromboplastin Time 32.0 Seconds (22.3-36.8)
--- NOTE | 2024-11-08 08:03 | WPDMODSED ---
Moderate Sedation Note-Pt Data Patient Data Allergies Allergy/AdvReac Type Severity Reaction Status Date / Time No Known Allergies Allergy Verified 11/07/24 13:26 Home Medications ?Medication ?Instructions ?Recorded ?Confirmed ?Type tadalafil 5 mg tablet (Cialis) 5 mg PO DAILY #90 tabs 09/12/24 11/07/24 Rx Current Medications: Active Medications Aspirin (Aspirin 81 Mg Enteric Tablet) 81 mg PO QAM DIONISIO Atorvastatin Calcium (Atorvastatin 40 Mg Tablet) 80 mg PO DAILY [facility] Heparin Sodium (Porcine) (Heparin Sodium 5,000 Units/Ml Vial) 4,000 units IV PUSH PRN PRN PRN Reason: aPTT less than 55 seconds Heparin Sodium (Porcine) (Heparin Sodium 5,000 Units/Ml Vial) 4,000 units IV PUSH PRN PRN PRN Reason: aPTT 55 - 70 seconds Heparin Sodium/Dextrose (Heparin Sodium/D5w 100 Units/Ml) 25,000 units in 250 mls @ 10 mls/hr IV CONT .Q24H [facility]; Protocol Last Admin: 11/08/24 01:32 Dose: 1,000 units/hr, 10 mls/hr Nitroglycerin (Nitroglycerin Ointment 1 Inch Dose) 1 inch TRANSDERM Q6HR [facility] Last Admin: 11/08/24 06:21 Dose: Not Given Sedation/Anesthesia: No previous sedation/anesthesia problems (including family history). [facility] Social History Social History Smoking status: Never smoker Alcohol intake: never Substance use: never Do You Feel Safe in your Home?: Yes Lack of Transportation: No Lack of Food: Never True Current Housing: I Have Housing Concerned About Future Housing: No Difficulty Paying Gas/Electric Bills: No Difficulty Paying for Meds: No Currently Unemployed: No Education: Trade/Vocational Certificate Difficulty w/ Childcare or Family Care: No Spiritual care concerns: No Mod Sed Physical Exam Physical Exam Pre Procedural Exam: Normal: Lungs, Heart Rate and Heart Rhythm Hours since solid foods: 12 Hours since liquid intake: 12 Mallampati Classification: class III Internal Medicine - PN: Obj Da Vital Signs Vital Signs: Vital Signs - 24 hr 11/07/24 12:09 11/07/24 12:34 11/07/24 12:49 Temperature 36.4 C Pulse Rate 58 L 49 L 57 L Respiratory Rate 16 16 12 Blood Pressure 167/89 H Pulse Oximetry 99 100 99 Oxygen Delivery Room Air 11/07/24 13:00 11/07/24 13:02 11/07/24 13:16 Temperature Pulse Rate 48 L 52 L 46 L Respiratory Rate 8 L 11 L 12 Blood Pressure 156/86 H Pulse Oximetry 98 98 100 Oxygen Delivery 11/07/24 13:25 11/07/24 13:32 11/07/24 13:33 Temperature Pulse Rate 50 L 45 L 52 L Respiratory Rate 16 17 Blood Pressure 159/83 H Pulse Oximetry Oxygen Delivery 11/07/24 13:45 11/07/24 13:48 11/07/24 14:09 Temperature Pulse Rate 47 L 45 L 56 L Respiratory Rate 14 9 L 19 Blood Pressure 155/80 H Pulse Oximetry Oxygen Delivery 11/07/24 14:42 11/07/24 14:49 11/07/24 16:00 Temperature 36.6 C Pulse Rate 52 L 52 L 45 L Respiratory Rate 16 16 Blood Pressure 162/75 H Pulse Oximetry 99 99 Oxygen Delivery Room Air 11/07/24 17:30 11/07/24 18:00 11/07/24 20:00 Temperature 36.6 C 36.8 C Pulse Rate 43 L 58 L 49 L Respiratory Rate 16 16 Blood Pressure 141/72 H 131/65 Pulse Oximetry 100 99 Oxygen Delivery 11/07/24 20:00 11/07/24 20:00 11/07/24 21:06 Temperature Pulse Rate 55 L Respiratory Rate Blood Pressure Pulse Oximetry 98 Oxygen Delivery Room Air Room Air 11/07/24 22:00 11/07/24 23:48 11/08/24 00:00 Temperature 36.8 C Pulse Rate 48 L 54 L Respiratory Rate 18 Blood Pressure 140/67 Pulse Oximetry 97 Oxygen Delivery Room Air 11/08/24 00:00 11/08/24 01:58 11/08/24 02:20 Temperature Pulse Rate 47 L 42 L 54 L Respiratory Rate Blood Pressure Pulse Oximetry 98 Oxygen Delivery 11/08/24 03:40 11/08/24 04:00 11/08/24 04:00 Temperature 36.7 C Pulse Rate 58 L 43 L Respiratory Rate 76 H Blood Pressure 135/72 Pulse Oximetry 18 L Oxygen Delivery Room Air 11/08/24 06:00 Temperature Pulse Rate 48 L Respiratory Rate Blood Pressure Pulse Oximetry Oxygen Delivery Intake/Output Intake/Output: Intake & Output 11/05/24 11/06/24 11/07/24 11/08/24 23:59 23:59 23:59 23:59 Intake Total 0 450 Balance 0 450 Meds/Results Medications: Active Medications Generic Name Dose Route Start Last Admin Trade Name Freq PRN Reason Stop Dose Admin Aspirin 81 mg 11/08/24 09:00 Aspirin 81 Mg Enteric Tablet PO QAM [facility] Atorvastatin Calcium 80 mg 11/08/24 09:00 Atorvastatin 40 Mg Tablet PO DAILY [facility] Heparin Sodium (Porcine) 4,000 units 11/07/24 15:49 Heparin Sodium 5,000 Units/Ml Vial IV PUSH PRN PRN aPTT less than 55 seconds Heparin Sodium (Porcine) 4,000 units 11/07/24 15:49 Heparin Sodium 5,000 Units/Ml Vial IV PUSH PRN PRN aPTT 55 - 70 seconds Heparin Sodium/Dextrose 25,000 units in 250 mls @ 10 mls/hr 11/08/24 01:30 11/08/24 01:32 Heparin Sodium/D5w 100 Units/Ml IV CONT 1,000 units/hr .Q24H [facility] 10 mls/hr Administration Protocol 1,000 UNITS/HR Nitroglycerin 1 inch 11/07/24 18:00 11/08/24 06:21 Nitroglycerin Ointment 1 Inch Dose TRANSDERM Not Given Q6HR [facility] Radiology Results: ITS Impressions Chest X-Ray 11/07/24 12:42 IMPRESSION: No acute process. Labs 11/08/24 07:42 11/07/24 12:05 Labs: Laboratory Results - last 24 hr 11/07/24 11/07/24 11/07/24 12:05 15:11 17:51 WBC 5.6 6.5 RBC 5.15 5.06 Hgb 16.0 15.7 Hct 48.5 47.3 MCV 94.2 93.5 MCH 31.1 31.0 MCHC 33.0 33.2 RDW 13.1 13.0 Plt Count 199 202 MPV 8.9 8.9 Immature Gran % (Auto) 0.2 0.3 Neut % (Auto) 58.8 61.1 Lymph % (Auto) 31.0 31.2 [place] % (Auto) 7.5 5.8 Eos % (Auto) 2.3 1.4 Baso % (Auto) 0.2 0.2 Lymph # (Auto) 1.74 2.04 [place] # (Auto) 0.4 0.4 Eos # (Auto) 0.1 0.1 Baso # (Auto) 0.0 0.0 Abs Immat Gran (auto) 0.01 0.02 Absolute Neuts (auto) 3.3 4.0 Absolute Nucleated RBC 0.000 0.000 Nucleated RBC % 0.0 0.0 PT 12.8 13.6 INR 1.0 1.1 APTT 26.4 31.6 Sodium 139 Potassium 4.1 Chloride 108 H Carbon Dioxide 25 Anion Gap 6 BUN 13 Creatinine 0.90 Estim Creat Clear Calc 114 Estimated GFR > 60 Glucose 112 H Calcium 9.5 Total Bilirubin 0.5 AST 29 ALT 25 Alkaline Phosphatase 61 Troponin I 0.446 H* 0.439 H* 0.469 H* NT-Pro-B Natriuret Pep 863 H Total Protein 7.3 Albumin 4.3 Lipase 66 11/08/24 07:42 WBC 6.1 RBC 4.90 Hgb 15.5 Hct 46.5 MCV 94.9 MCH 31.6 MCHC 33.3 RDW 13.1 Plt Count 197 MPV 9.0 Immature Gran % (Auto) 0.5 Neut % (Auto) 60.0 Lymph % (Auto) 30.9 [place] % (Auto) 6.4 Eos % (Auto) 2.0 Baso % (Auto) 0.2 Lymph # (Auto) 1.90 [place] # (Auto) 0.4 Eos # (Auto) 0.1 Baso # (Auto) 0.0 Abs Immat Gran (auto) 0.03 Absolute Neuts (auto) 3.7 Absolute Nucleated RBC 0.000 Nucleated RBC % 0.0 PT INR APTT 32.0 Sodium Potassium Chloride Carbon Dioxide Anion Gap BUN Creatinine Estim Creat Clear Calc Estimated GFR Glucose Calcium Total Bilirubin AST ALT Alkaline Phosphatase Troponin I NT-Pro-B Natriuret Pep Total Protein Albumin Lipase ASA Classification/Sedation ASA Classification/Sedation ASA Class: III Emergent: No Risks: Risks, benefits and alternatives explained and patient/family accepted plan for sedation. Patient re-evaluated immediately prior to sedation.
--- NOTE | 2024-11-08 08:04 | WPDHPUPDATE1 ---
History and Physical Update Update Date/Time: 11/08/24 08:04 History and Physical has been reviewed, including an updated exam of the patient. There are NO changes in the patient's condition. Risks, benefits, and alternatives have been discussed and questions answered. Patient agrees to proceed with procedure.
[2024-11-08] MEDS: ASPIRIN 81 MG ENTERIC TABLET PO (08:28)
[2024-11-08] MEDS: ATORVASTATIN 40 MG TABLET 80 MG PO (08:28)
--- NOTE | 2024-11-08 08:36 | P.PNIM_ITS ---
Progress Note: A&P Assessment and Plan (1) Acute non-ST elevation myocardial infarction (NSTEMI): Code(s): I21.4 - Non-ST elevation (NSTEMI) myocardial infarction Status: Acute Assessment and Plan: Cardiology consulted EKG as needed Nitro paste Troponin trend flat NPO Echo EF 55-60% no regional wall motion abnormalities. Heparin drip Planned heart catheterization today (2) Bradycardia: Code(s): R00.1 - Bradycardia, unspecified Status: Acute Assessment and Plan: Telemetry monitoring (3) High blood pressure determined by examination: Code(s): I10 - Essential (primary) hypertension Status: Acute Assessment and Plan: No diagnosis of hypertension Follow-up with PCP in 3 months or follow cardiology's recommendations (4) NATHAN (obstructive sleep apnea): Code(s): G47.33 - Obstructive sleep apnea (adult) (pediatric) Status: Acute Assessment and Plan: CPAP p.r.n. Subjective Date/time seen: 11/08/24 08:36 Interval history: No further chest pain. Currently has a nitropaste. Plan for catheterization this afternoon. Review of Systems Review of Systems: All systems reviewed & are unremarkable except as noted in HPI and below Exam Narrative: General: well appearing, appears stated age. HEENT: normocephalic, atraumatic. Mucous membranes moist. EOMI, PERRLA, Neck supple without JVD, lymphadenopathy, or bruit. Respiratory: clear to ascultation bilaterally. No rales/rhonic/wheezes. Cardiovascular: Regular rate and rhythm, normal S1-S2 upon ascultation. No murmurs, rubs, or clicks. Abdomen: Soft, round, no pulsatile masses, nondistended and nontender. No rebound, no guarding. Extremities: No cyanosis, clubbing, or edema present. Pulses are palpable 2/2. Active ROM to all four extremities. Neuro: Alert and orientated x 4. PERRLA. Cranial nerves 2-12 intact without focal deficit. Skin: Warm, dry, and intact, without rash, erythema, or lesion. Psych: pleasant, cooperative, normal speech, normal affect, no hallucinations, no dysarthia Objective Data Vital Signs Vital Signs: Vital Signs - 24 hr 11/07/24 12:09 11/07/24 12:34 11/07/24 12:49 Temperature 97.6 F Pulse Rate 58 L 49 L 57 L Respiratory Rate 16 16 12 Blood Pressure 167/89 H Pulse Oximetry 99 100 99 Oxygen Delivery Room Air 11/07/24 13:00 11/07/24 13:02 11/07/24 13:16 Temperature Pulse Rate 48 L 52 L 46 L Respiratory Rate 8 L 11 L 12 Blood Pressure 156/86 H Pulse Oximetry 98 98 100 Oxygen Delivery 11/07/24 13:25 11/07/24 13:32 11/07/24 13:33 Temperature Pulse Rate 50 L 45 L 52 L Respiratory Rate 16 17 Blood Pressure 159/83 H Pulse Oximetry Oxygen Delivery 11/07/24 13:45 11/07/24 13:48 11/07/24 14:09 Temperature Pulse Rate 47 L 45 L 56 L Respiratory Rate 14 9 L 19 Blood Pressure 155/80 H Pulse Oximetry Oxygen Delivery 11/07/24 14:42 11/07/24 14:49 11/07/24 16:00 Temperature 97.9 F Pulse Rate 52 L 52 L 45 L Respiratory Rate 16 16 Blood Pressure 162/75 H Pulse Oximetry 99 99 Oxygen Delivery Room Air 11/07/24 17:30 11/07/24 18:00 11/07/24 20:00 Temperature 97.9 F 98.3 F Pulse Rate 43 L 58 L 49 L Respiratory Rate 16 16 Blood Pressure 141/72 H 131/65 Pulse Oximetry 100 99 Oxygen Delivery 11/07/24 20:00 11/07/24 20:00 11/07/24 21:06 Temperature Pulse Rate 55 L Respiratory Rate Blood Pressure Pulse Oximetry 98 Oxygen Delivery Room Air Room Air 11/07/24 22:00 11/07/24 23:48 11/08/24 00:00 Temperature 98.3 F Pulse Rate 48 L 54 L Respiratory Rate 18 Blood Pressure 140/67 Pulse Oximetry 97 Oxygen Delivery Room Air 11/08/24 00:00 11/08/24 01:58 11/08/24 02:20 Temperature Pulse Rate 47 L 42 L 54 L Respiratory Rate Blood Pressure Pulse Oximetry 98 Oxygen Delivery 11/08/24 03:40 11/08/24 04:00 11/08/24 04:00 Temperature 98.1 F Pulse Rate 58 L 43 L Respiratory Rate 76 H Blood Pressure 135/72 Pulse Oximetry 18 L Oxygen Delivery Room Air 11/08/24 06:00 11/08/24 08:13 Temperature 97.9 F Pulse Rate 48 L 44 L Respiratory Rate 20 Blood Pressure 140/69 Pulse Oximetry 97 Oxygen Delivery Intake/Output Intake/Output: Intake & Output 11/05/24 11/06/24 11/07/24 11/08/24 23:59 23:59 23:59 23:59 Intake Total 0 519.7 Balance 0 519.7 Meds/Results Medications: Active Medications Generic Name Dose Route Start Last Admin Trade Name Ethanq PRN Reason Stop Dose Admin Aspirin 81 mg 11/08/24 09:00 11/08/24 08:28 Aspirin 81 Mg Enteric Tablet PO 81 mg QAM DIONISIO Administration Atorvastatin Calcium 80 mg 11/08/24 09:00 11/08/24 08:28 Atorvastatin 40 Mg Tablet PO 80 mg DAILY [facility]IO Administration Heparin Sodium (Porcine) 4,000 units 11/07/24 15:49 11/08/24 08:29 Heparin Sodium 5,000 Units/Ml Vial IV PUSH 4,000 units PRN PRN Administration aPTT less than 55 seconds Heparin Sodium (Porcine) 4,000 units 11/07/24 15:49 Heparin Sodium 5,000 Units/Ml Vial IV PUSH PRN PRN aPTT 55 - 70 seconds Heparin Sodium/Dextrose 25,000 units in 250 mls @ 10 mls/hr 11/08/24 01:30 11/08/24 08:30 Heparin Sodium/D5w 100 Units/Ml IV CONT 1,400 units/hr .Q24H [facility] 14 mls/hr Titration Protocol 1,000 UNITS/HR Nitroglycerin 1 inch 11/07/24 18:00 11/08/24 06:21 Nitroglycerin Ointment 1 Inch Dose TRANSDERM Not Given Q6HR [facility] Radiology Results: ITS Impressions Chest X-Ray 11/07/24 12:42 IMPRESSION: No acute process. Labs Labs: Laboratory Results - last 24 hr 11/07/24 11/07/24 11/07/24 12:05 15:11 17:51 WBC 5.6 6.5 RBC 5.15 5.06 Hgb 16.0 15.7 Hct 48.5 47.3 MCV 94.2 93.5 MCH 31.1 31.0 MCHC 33.0 33.2 RDW 13.1 13.0 Plt Count 199 202 MPV 8.9 8.9 Immature Gran % (Auto) 0.2 0.3 Neut % (Auto) 58.8 61.1 Lymph % (Auto) 31.0 31.2 [place] % (Auto) 7.5 5.8 Eos % (Auto) 2.3 1.4 Baso % (Auto) 0.2 0.2 Lymph # (Auto) 1.74 2.04 [place] # (Auto) 0.4 0.4 Eos # (Auto) 0.1 0.1 Baso # (Auto) 0.0 0.0 Abs Immat Gran (auto) 0.01 0.02 Absolute Neuts (auto) 3.3 4.0 Absolute Nucleated RBC 0.000 0.000 Nucleated RBC % 0.0 0.0 PT 12.8 13.6 INR 1.0 1.1 APTT 26.4 31.6 Sodium 139 Potassium 4.1 Chloride 108 H Carbon Dioxide 25 Anion Gap 6 BUN 13 Creatinine 0.90 Estim Creat Clear Calc 114 Estimated GFR > 60 Glucose 112 H Calcium 9.5 Total Bilirubin 0.5 AST 29 ALT 25 Alkaline Phosphatase 61 Troponin I 0.446 H* 0.439 H* 0.469 H* NT-Pro-B Natriuret Pep 863 H Total Protein 7.3 Albumin 4.3 Lipase 66 11/08/24 07:42 WBC 6.1 RBC 4.90 Hgb 15.5 Hct 46.5 MCV 94.9 MCH 31.6 MCHC 33.3 RDW 13.1 Plt Count 197 MPV 9.0 Immature Gran % (Auto) 0.5 Neut % (Auto) 60.0 Lymph % (Auto) 30.9 [place] % (Auto) 6.4 Eos % (Auto) 2.0 Baso % (Auto) 0.2 Lymph # (Auto) 1.90 [place] # (Auto) 0.4 Eos # (Auto) 0.1 Baso # (Auto) 0.0 Abs Immat Gran (auto) 0.03 Absolute Neuts (auto) 3.7 Absolute Nucleated RBC 0.000 Nucleated RBC % 0.0 PT INR APTT 32.0 Sodium Potassium Chloride Carbon Dioxide Anion Gap BUN Creatinine Estim Creat Clear Calc Estimated GFR Glucose Calcium Total Bilirubin AST ALT Alkaline Phosphatase Troponin I NT-Pro-B Natriuret Pep Total Protein Albumin Lipase
--- NOTE | 2024-11-08 12:51 | P.PCNCC_ITS ---
Cardiac Cath Procedure Note Date of procedure:: 11/08/24 Performing physician:: Carmina Deluca MD Indication:: NSTEMI Brief clinical history:: 58-year-old male patient with history of obstructive sleep apnea on CPAP, hypertension, tobacco use presents with NSTEMI. Procedure Procedure performed:: 1. Right radial artery access 2. Left heart catheterization 3. Coronary angiogram 4. IVUS guided PCI to 100% thrombotic occluded branch of ramus intermedius and 80% stenosis of mid ramus intermedius artery (TAP) Sedation/Medication given:: Fentanyl 150 mcg Versed 1.5 mg Estimated blood loss:: 50 ml Procedure note:: CATHETERIZATION LABORATORY REPORT Procedure Date: 11/08/24 Anesthesia: Versed and Fentanyl were ordered and given in my presence at 10:14 a.m., procedure ended at 12:24 p.m.. Supervision of nurse monitored moderate sedation with Versed and Fentanyl was provided for 130 minutes. Pre-op Diagnosis: NSTEMI Post-op Diagnosis: NSTEMI status post successful IVUS guided PCI to 100% thrombotic stenosis of branch of ramus intermedius artery with 2 mm X 22 mm Medtronic jessa [place] BEATRICE post dilated with 3.0 mm X 15 mm NC balloon to high ATN, and 80% stenosis of mid ramus intermediate artery with 4.0 mm X 18 mm Medtronic jessa [place] BEATRICE post dilated with 4.5 mm X 15 mm NC balloon to high MOISES Procedure(s): Left heart catheterization with coronary angiography Access Site: Right radial artery Brief History and Clinical Indications: All risks, benefits and alternatives to left heart catheterization with or without percutaneous coronary intervention was discussed at length with the patient. Risk of complications including but not limited to bleeding, infection, arrhythmia, stroke, worsening kidney function, blood loss, groin hematoma, limb loss, emergency coronary artery bypass grafting, and even were discussed with the patient and all questions were answered. The patient understood and wished to proceed. Time out called, patient name, date of , medical record number, allergies, procedure performed, identify Timber Setter, patient and staff member concurred with accurate data, procedure carried on. Findings: LEFT HEART CATHETERIZATION FINDINGS: 1. Left main: The left main coronary artery is widely patent with minimal luminal irregularities. 2. Left anterior descending: The proximal LAD is ectatic with 30% stenosis. The mid LAD has luminal irregularities. The distal LAD is diffusely diseased. The LAD gives off diagonal branches which have mild luminal irregularities without any significant obstructive angiographic disease. 3. Ramus intermedius: The mid ramus intermedius has 80% stenosis. The 1st branch of the ramus intermedius has 60% diffuse stenosis in the proximal vessel. The 2nd branch of the ramus intermedius has 100% thrombotic occlusion at the ostium. Antegrade ELLIE 0 to 1 flow. A stump was visible. This is the culprit for patient's presentation. 4. Left circumflex: The left circumflex artery is a dominant artery. It gives of the LPDA. The LCX, the main marginal branches, and LPDA have mild luminal irregularities without any significant obstructive angiographic disease. 5. Right coronary artery: The RCA is non dominant. 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 The RV marginal branch is a small vessel with 70% stenosis at its ostium. The rest of the RCA is very small with mild luminal irregularities and without any significant obstructive angiographic disease. 5. Left ventricle: A. End-diastolic pressure 24 mmHg. B. LV gram deferred. C. No significant gradient across aortic valve on catheter pullback. 6. Opening AO pressure 130/75/90 and closing AO pressure 148/65/90 5 mm Hg. Description of Procedure: Informed consent signed and placed in the chart. Patient transferred to laboratory tester room. Prepped and draped in usual sterile fashion. 2% lidocaine injected subcutaneously in right wrist area. 22-gauge venipuncture catheter used to access the right radial artery with the Seldinger technique. 6-FR slender sheath placed in right radial artery. Nitroglycerin 200mcg, and Heparin 5000U was given intraarterial through the sheath. J wire advanced under fluoroscopy. Five Gu[place]an JL 3.5 diagnostic catheter engaged Left Main Coronary Artery. 5 Guinean JR4 diagnostic catheter engaged Right Coronary Artery. Multiple orthogonal angiogram obtained and reviewed. 5 [place] JR4 diagnostic catheter crossed aortic valve to obtain LVEDP, LV angiogram deferred. Hemostasis was achieved by application of TR band. Procedure Description for PCI: Heparin was used for anticoagulation (ACT maintained above 250) Patient loaded with heparin at 70 units/kg. Six F EBU 3 point guide catheter was used to intubate the left main. 0.014 runthrough coronary wire was passed in to the distal ramus intermedius artery. A 2nd 0.014 runthrough wire was advanced into the branch of ramus intermedius artery. The 100% thrombotic stenosis in the ostium of the branch of ramus intermedius artery was pre-dilated with a 1.5 mm X 15 mm, 2.0 mm X 15 mm, 3.0 mm X 10 mm compliant balloons inflated to high MOISES. The 80% stenosis in the mid ramus intermedius artery was pre-dilated with a 3.0 mm X 10 mm compliant balloon to high MOISES. A bolus of 10 mL of Intracoronary Integrilin was administered into the branch of the ramus intermedius artery. Following this aspiration thrombectomy with penumbra was performed in the same vessel. IVS of the branch of the ramus intermedius and ramus intermedius arteries was performed to evaluate the vessel dimensions and lesion characteristics. A 2.0 mm x 22 mm Medtronic jessa [place] BEATRICE was successfully deployed into the branch of ramus intermedius artery in T and protrusion fashion and the mid and proximal portions of the stent stent were post-dilated with a 3.0 mm X 15 mm NC balloon inflated to high MOISES. A 4.0 mm X 18 mm Medtronic jessa [place] BEATRICE was then deployed in the mid ramus intermedius and post dilated with a 4.5 mm X 12 mm NC balloon inflated to high MOISES. The wire in the branch of the ramus intermedius artery was withdrawn back and rewired into the same vessel through the struts of the stent in the mid ramus intermedius artery. KBI performed with 3.0 mm X 15 mm NC balloon and 4.5 mm X 12 mm NC balloons. Final POT performed 4.5 mm X 12 mm NC balloon in the ramus intermedius stent. Intracoronary NTG was administered. Follow-up angiograms showed an excellent result. Coronary wires and guide-catheter were removed. Pre-procedure - ELLIE 0 flow Post-procedure - ELLIE 3 flow No angiographic complications identified. Assessment: NSTEMI status post successful IVUS guided PCI to 100% thrombotic stenosis of branch of ramus intermedius artery with 2 mm X 22 mm Medtronic jessa [place] BEATRICE (TAP) post dilated with 3.0 mm X 15 mm NC balloon to high MOISES, and 80% stenosis of mid ramus intermediate artery with 4.0 mm X 18 mm Medtronic jessa [place] BEATRICE post dilated with 4.5 mm X 15 mm NC balloon to high MOISES Post Operative Condition: Stable No significant blood loss Disposition: Floor Plan: The patient will be monitored in the recovery area. DAPT for 1 year followed by ASA indefinitely. The above findings were discussed with the referring physician. Continue aggressive medical therapy and risk factor modification. Further recommendations and management per primary cardiology team.
--- NOTE | 2024-11-08 16:04 | PM.DS ---
DS: Admitting Diagnosis Discharge Date 11/08/2024 Admitting Diagnosis chest pain DS: Discharge Diagnosis Discharge Diagnosis (1) Acute non-ST elevation myocardial infarction (NSTEMI): Code(s): I21.4 - Non-ST elevation (NSTEMI) myocardial infarction Status: Acute (2) Bradycardia: Code(s): R00.1 - Bradycardia, unspecified Status: Acute (3) High blood pressure determined by examination: Code(s): I10 - Essential (primary) hypertension Status: Acute (4) NATHAN (obstructive sleep apnea): Code(s): G47.33 - Obstructive sleep apnea (adult) (pediatric) Status: Acute DS: Summary Hospital Course Hospital Course: # Acute non-ST elevation myocardial infarction (NSTEMI): Cardiology consulted EKG as needed Nitro paste Troponin trend flat NPO Echo EF 55-60% no regional wall motion abnormalities. Heparin drip status post cardiac cath 11/08/2024: PCI to 100% thrombotic stenosis of branch of ramus intermedius artery and 80% stenosis of mid ramus intermediate artery dapt, statin echo with no sig valvular abn, mild biatrial enlargement,ef 55-60% ok per cardiology to discharge and follow up as op basis. Time Spent with Patient Time attestation: Total time spent providing and/or coordinating discharge services:35 mins Exam Narrative: General: well appearing, appears stated age. HEENT: normocephalic, atraumatic. Mucous membranes moist. EOMI, PERRLA, Neck supple without JVD, lymphadenopathy, or bruit. Respiratory: clear to ascultation bilaterally. No rales/rhonic/wheezes. Cardiovascular: Regular rate and rhythm, normal S1-S2 upon ascultation. No murmurs, rubs, or clicks. Abdomen: Soft, round, no pulsatile masses, nondistended and nontender. No rebound, no guarding. Extremities: No cyanosis, clubbing, or edema present. Pulses are palpable 2/2. Active ROM to all four extremities. Neuro: Alert and orientated x 4. PERRLA. Cranial nerves 2-12 intact without focal deficit. Skin: Warm, dry, and intact, without rash, erythema, or lesion. Psych: pleasant, cooperative, normal speech, normal affect, no hallucinations, no dysarthia DS: Data Data Completed and Pending Labs on day of discharge: Labs from last 24 hours 11/08/24 11/08/24 11/08/24 12:25 11:43 10:50 WBC RBC Hgb Hct MCV MCH MCHC RDW Plt Count MPV Immature Gran % (Auto) Neut % (Auto) Lymph % (Auto) [place] % (Auto) Eos % (Auto) Baso % (Auto) Lymph # (Auto) [place] # (Auto) Eos # (Auto) Baso # (Auto) Abs Immat Gran (auto) Absolute Neuts (auto) Absolute Nucleated RBC Nucleated RBC % PT INR APTT Activ Coag Time Kaolin 227 H 262 H 268 H Troponin I 11/08/24 11/07/24 07:42 17:51 WBC 6.1 6.5 RBC 4.90 5.06 Hgb 15.5 15.7 Hct 46.5 47.3 MCV 94.9 93.5 MCH 31.6 31.0 MCHC 33.3 33.2 RDW 13.1 13.0 Plt Count 197 202 MPV 9.0 8.9 Immature Gran % (Auto) 0.5 0.3 Neut % (Auto) 60.0 61.1 Lymph % (Auto) 30.9 31.2 [place] % (Auto) 6.4 5.8 Eos % (Auto) 2.0 1.4 Baso % (Auto) 0.2 0.2 Lymph # (Auto) 1.90 2.04 [place] # (Auto) 0.4 0.4 Eos # (Auto) 0.1 0.1 Baso # (Auto) 0.0 0.0 Abs Immat Gran (auto) 0.03 0.02 Absolute Neuts (auto) 3.7 4.0 Absolute Nucleated RBC 0.000 0.000 Nucleated RBC % 0.0 0.0 PT 13.6 INR 1.1 APTT 32.0 31.6 Activ Coag Time Kaolin Troponin I 0.469 H* Procedures/Treatments: Cardiac Cath Procedure Note Date of procedure:: 11/08/24 Performing physician:: Carmina Deluca MD Indication:: NSTEMI Brief clinical history:: 58-year-old male patient with history of obstructive sleep apnea on CPAP, hypertension, tobacco use presents with NSTEMI. Procedure Procedure performed:: 1. Right radial artery access 2. Left heart catheterization 3. Coronary angiogram 4. IVUS guided PCI to 100% thrombotic occluded branch of ramus intermedius and 80% stenosis of mid ramus intermedius artery (TAP) Sedation/Medication given:: Fentanyl 150 mcg Versed 1.5 mg Estimated blood loss:: 50 ml Procedure note:: CATHETERIZATION LABORATORY REPORT Procedure Date: 11/08/24 Anesthesia: Versed and Fentanyl were ordered and given in my presence at 10:14 a.m., procedure ended at 12:24 p.m.. Supervision of nurse monitored moderate sedation with Versed and Fentanyl was provided for 130 minutes. Pre-op Diagnosis: NSTEMI Post-op Diagnosis: NSTEMI status post successful IVUS guided PCI to 100% thrombotic stenosis of branch of ramus intermedius artery with 2 mm X 22 mm Medtronic jessa [place] BEATRICE post dilated with 3.0 mm X 15 mm NC balloon to high ATN, and 80% stenosis of mid ramus intermediate artery with 4.0 mm X 18 mm Medtronic jessa [place] BEATRICE post dilated with 4.5 mm X 15 mm NC balloon to high MOISES Procedure(s): Left heart catheterization with coronary angiography Access Site: Right radial artery Brief History and Clinical Indications: All risks, benefits and alternatives to left heart catheterization with or without percutaneous coronary intervention was discussed at length with the patient. Risk of complications including but not limited to bleeding, infection, arrhythmia, stroke, worsening kidney function, blood loss, groin hematoma, limb loss, emergency coronary artery bypass grafting, and even were discussed with the patient and all questions were answered. The patient understood and wished to proceed. Time out called, patient name, date of , medical record number, allergies, procedure performed, identify Account Group Supervisor, patient and staff member concurred with accurate data, procedure carried on. Findings: LEFT HEART CATHETERIZATION FINDINGS: 1. Left main: The left main coronary artery is widely patent with minimal luminal irregularities. 2. Left anterior descending: The proximal LAD is ectatic with 30% stenosis. The mid LAD has luminal irregularities. The distal LAD is diffusely diseased. The LAD gives off diagonal branches which have mild luminal irregularities without any significant obstructive angiographic disease. 3. Ramus intermedius: The mid ramus intermedius has 80% stenosis. The 1st branch of the ramus intermedius has 60% diffuse stenosis in the proximal vessel. The 2nd branch of the ramus intermedius has 100% thrombotic occlusion at the ostium. Antegrade ELLIE 0 to 1 flow. A stump was visible. This is the culprit for patient's presentation. 4. Left circumflex: The left circumflex artery is a dominant artery. It gives of the LPDA. The LCX, the main marginal branches, and LPDA have mild luminal irregularities without any significant obstructive angiographic disease. 5. Right coronary artery: The RCA is non dominant. 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 The RV marginal branch is a small vessel with 70% stenosis at its ostium. The rest of the RCA is very small with mild luminal irregularities and without any significant obstructive angiographic disease. 5. Left ventricle: A. End-diastolic pressure 24 mmHg. B. LV gram deferred. C. No significant gradient across aortic valve on catheter pullback. 6. Opening AO pressure 130/75/90 and closing AO pressure 148/65/90 5 mm Hg. Description of Procedure: Informed consent signed and placed in the chart. Patient transferred to hemodialysis lab technician room. Prepped and draped in usual sterile fashion. 2% lidocaine injected subcutaneously in right wrist area. 22-gauge venipuncture catheter used to access the right radial artery with the Seldinger technique. 6-FR slender sheath placed in right radial artery. Nitroglycerin 200mcg, and Heparin 5000U was given intraarterial through the sheath. J wire advanced under fluoroscopy. Five Pashto JL 3.5 diagnostic catheter engaged Left Main Coronary Artery. 5 Pashto JR4 diagnostic catheter engaged Right Coronary Artery. Multiple orthogonal angiogram obtained and reviewed. 5 Pashto JR4 diagnostic catheter crossed aortic valve to obtain LVEDP, LV angiogram deferred. Hemostasis was achieved by application of TR band. Procedure Description for PCI: Heparin was used for anticoagulation (ACT maintained above 250) Patient loaded with heparin at 70 units/kg. Six F EBU 3 point guide catheter was used to intubate the left main. 0.014 runthrough coronary wire was passed in to the distal ramus intermedius artery. A 2nd 0.014 runthrough wire was advanced into the branch of ramus intermedius artery. The 100% thrombotic stenosis in the ostium of the branch of ramus intermedius artery was pre-dilated with a 1.5 mm X 15 mm, 2.0 mm X 15 mm, 3.0 mm X 10 mm compliant balloons inflated to high MOISES. The 80% stenosis in the mid ramus intermedius artery was pre-dilated with a 3.0 mm X 10 mm compliant balloon to high MOISES. A bolus of 10 mL of Intracoronary Integrilin was administered into the branch of the ramus intermedius artery. Following this aspiration thrombectomy with penumbra was performed in the same vessel. IVS of the branch of the ramus intermedius and ramus intermedius arteries was performed to evaluate the vessel dimensions and lesion characteristics. A 2.0 mm x 22 mm Medtronic jessa [place] BEATRICE was successfully deployed into the branch of ramus intermedius artery in T and protrusion fashion and the mid and proximal portions of the stent stent were post-dilated with a 3.0 mm X 15 mm NC balloon inflated to high MOISES. A 4.0 mm X 18 mm Medtronic jessa [place] BEATRICE was then deployed in the mid ramus intermedius and post dilated with a 4.5 mm X 12 mm NC balloon inflated to high MOISES. The wire in the branch of the ramus intermedius artery was withdrawn back and rewired into the same vessel through the struts of the stent in the mid ramus intermedius artery. KBI performed with 3.0 mm X 15 mm NC balloon and 4.5 mm X 12 mm NC balloons. Final POT performed 4.5 mm X 12 mm NC balloon in the ramus intermedius stent. Intracoronary NTG was administered. Follow-up angiograms showed an excellent result. Coronary wires and guide-catheter were removed. Pre-procedure - ELLIE 0 flow Post-procedure - ELLIE 3 flow No angiographic complications identified. Assessment: NSTEMI status post successful IVUS guided PCI to 100% thrombotic stenosis of branch of ramus intermedius artery with 2 mm X 22 mm Medtronic jessa [place] BEATRICE (TAP) post dilated with 3.0 mm X 15 mm NC balloon to high MOISES, and 80% stenosis of mid ramus intermediate artery with 4.0 mm X 18 mm Medtronic jessa [place] BEATRICE post dilated with 4.5 mm X 15 mm NC balloon to high MOISES Post Operative Condition: Stable No significant blood loss Disposition: Floor Plan: The patient will be monitored in the recovery area. DAPT for 1 year followed by ASA indefinitely. The above findings were discussed with the referring physician. Continue aggressive medical therapy and risk factor modification. Further recommendations and management per primary cardiology team. Imaging Radiologist's impression: ITS Impressions Chest X-Ray 11/07/24 12:42 IMPRESSION: No acute process. Discharge Plan Discharge Attending physician on discharge: Pepe Riggs Consulting providers: Carmina Deluca Discharging Clinician: Pepe Riggs Anticipated Discharge Date/Time: 11/08/24 16:05 Patient Disposition: Home Activity: as tolerated Diet: heart healthy Discharge Instructions: [facility] [address] [place], [place] [id number] DISCHARGE INSTRUCTIONS - POST PCI Activity 1. No driving until 11/09. 2. No lifting, pushing or pulling more than 5 pounds for 1 week. 3. No strenuous exercise or activity (including sexual activity) until you are released to do so. 4. May shower but no tub baths or swimming pool for 1 week. Avoid commercial hot tubs. They are too hot. Medications DO NOT STOP YOUR MEDICATIONS ONLY YOUR DRYWALL HANGER HELPER CAN STOP THE FOLLOWING MEDICATIONS - PLEASE CALL THE OFFICE WITH QUESTIONS. *Aspirin *Ticagrelor (Brilinta) *Atorvastatin *Lisinopril or ARB *Metoprolol tartrate or succinate *Clopidogrel (Plavix) *Prasugrel (Effient) Important Reminders 1. Keep your stent card in your wallet at all times 2. Follow a heart healthy diet paying extra attention to cholesterol and fats. 3. Stay hydrated. 4. If you have chest pain unrelieved by rest or nitroglycerin (if prescribed) call 911 immediately. 5. If you miss one dose of Brilinta (if prescribed) take a tablet at the next time due. If you miss 2 doses take a tablet when you remember and resume at the next time due. *For any other questions please call the office at [phone]. Office hours are 8AM 4:30PM Monday through Monday. Patient Instructions: Antibiotic Form Patient Language: Slovenian Stand Alone Forms: General Discharge Information Follow-up/Referrals: Billy Jarvis MD [Physician] - 05/21/25 1:15 pm Discharge Medications: New ticagrelor [Brilinta] 90 mg tablet 90 mg PO Q12H Qty: 60 1RF atorvastatin 40 mg Tablet 80 mg PO DAILY Qty: 30 0RF aspirin 81 mg Tablet,Delayed Release (Dr/Ec) 81 mg PO QAM Qty: 30 0RF Discontinued tadalafil [Cialis] 5 mg tablet 5 mg PO DAILY Qty: 90 1RF Date of admission: 11/07/24 13:25 Primary Care Provider: Lopez Barrett Admitting Provider: Sunil Ohara Attending physician on admission: Sunil Ohara Condition: Improved
== END 2024-11-08 18:08 | disposition home or self-care (01) | DRG 322 ==
LOC: ANHED 13:16 → ANHIMU 14:19
PROVIDERS: Internal Medicine Interventional Cardiology; Admitting Provider Internal Medicine; Emergency Provider Emergency Medicine; PCP Family Medicine; Visit Provider Internal Medicine
PROC: 4A023N7 Measurement of Cardiac Sampling and Pressure, Left Heart, Percutaneous Approach (ICD-10-PCS; CPT 93452; principal; 2024-11-08 10:00)
PROC: 027035Z Dilation of Coronary Artery, One Artery with Two Drug-eluting Intraluminal Devices, Percutaneous Approach (ICD-10-PCS; CPT 92973; 2024-11-08 10:00)
PROC: 027035Z Dilation of Coronary Artery, One Artery with Two Drug-eluting Intraluminal Devices, Percutaneous Approach (ICD-10-PCS; 2024-11-08 10:00)
PROC: 027034Z Dilation of Coronary Artery, One Artery with Drug-eluting Intraluminal Device, Percutaneous Approach (ICD-10-PCS; CPT 92928; 2024-11-08 10:00)
DX: I21.4 Non-ST elevation (NSTEMI) myocardial infarction (principal); I25.10 Atherosclerotic heart disease of native coronary artery without angina pectoris; I10 Essential (primary) hypertension; R00.1 Bradycardia, unspecified; G47.33 Obstructive sleep apnea (adult) (pediatric)
CPT/HCPCS: 36415; 71045; 80053; 83690; 83880; 84484; 85025; 85610; 85730; 92973; 92978; 93005; 93306; 93458; 99285; A9270; C1725; C1753; C1757; C1769; C1874; C1887; C1894; C7532; C9600; J1327; J1644; J1650; J2003; J2250; J2305; J3010; J7040; Q9957

== ENCOUNTER 2025-01-10 09:45 | Emergency (ER) | payer OTHER, SELFPAY ==
--- NOTE | ~2025-01-10 | XR_ITS ---
EXAMINATION: XR wrist RT min 3V DATE: 01/10/2025 10:11 INDICATION: Right anterior wrist pain post fall TECHNIQUE: Posteroanterior, ulnar deviation, oblique, and lateral views of the right wrist were obtained. COMPARISON: 05/18/2016 FINDINGS: Carpal bossing with chronic corticated ossicle without evident donor site projecting dorsal to the junction of the second and third carpometacarpal joints most consistent with a normal anatomic variant post styloideum. There is an additional new small ossicle which does not appear corticated along its deep margin projecting dorsal to the carpus and location typical for a mildly displaced dorsal triquetral fracture there is prominent surrounding soft tissue swelling at the dorsal aspect of the carpus. 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 IMPRESSION: 1. Small likely mildly displaced fracture fragment at the dorsal aspect of the carpus likely arising from the triquetrum. Reviewed, dictated and finalized at location A.
[2025-01-10 09:49] VITALS: BP 177/91; PULSE 61; RESP 17; TEMP 36.5; O2SAT 98
--- OUTSIDE RECORDS SUMMARY | 2025-01-10 10:19 | XMS_ITS | Clinical Summary ---
Author Organization [facility] Address [address] [place] [address] Care Team Providers Care Director Software Quality Assurance Name Role Phone Unavailable Primary Care Provider Unavailabl e Source Comments [facility],non-owned Affiliates and Associated Physician Practices is amultiple site organization consisting of ambulatory clinics and hospital sitesin [place], [place], [place]. This disclosure is being madepursuant to the Care Everywhere program and may not contain all information available regarding this patient. Last updated 18.[facility] Encounters Date Type Department Care Team Description 11/05/2024 Lab Requisition [facility] - DermPath Lab [address] [facility] [place] [phone] Loly Gabriel MD from Last 3 Months [...] 11/16/1982 DTAP/TDAP/TD VACCINES (1 - Tdap) 11/21/1983 PNEUMOCOCCAL VACCINE 50+ (1 of 1 - PCV) 2014 ZOSTER VACCINE (1 of 2) 2014 COVID-19 VACCINE (1 - 2023-2 5 season) 2023 DEPRESSION SCREENING 05/01/2024 INFLUENZA VACCINE (#1) 2024 Respiratory Syncytial Virus (RSV) Vaccine Pt: or over 60 yrs (1 - 1-dose 75+ series) 11/21/2039 HEPATITIS B VACCINE Aged Out No longe r eligible based on patient's age to complete this topic HIB VACCINE Aged Out No longer eligi [...] on patient's age to complete this topic Procedures Procedure Name Priority Date/Time Associated Diagnosis Comments DERMATOPATHOLOGY Routine 11/05/2024 3:32 PM CDT from Last 3 Months Results * DERMATOPATHOLOGY (11/05/2024 3:32 PM CDT) Case Report Dermatopathology Report Case: [id number] Authorizing Provider: Loly Gabriel MD Collected: 11/05/2024 03:32 PM Ordering Location: [facility] - Received: 11/07/2024 08:07 AM DermPath Lab Pathologist: Yanira Deleon MD Specimen: Skin, left parietal scalp 3:59 PM CDT DERMATOPATHOLOGY LABORATORY Final Diagnosis Specimen A. SKIN, left parietal scalp: SEBORRHEIC KERATOSIS, IRRITATED AND INFLAMED (L82.0) 3:59 PM CDT DERMATOPATHOLOGY LABORATORY at 1559 CDT Clinical History R/O SCC vs SK 3:59 PM CDT DERMATOPATHOLOGY LABORATORY Gross Description Specimen A: Received is one formalin filled container labeled with the patient's name and designated left parietal scalp. The specimen consists of a shave biopsy measuring 9x9x3 mm. Jar 0. 3:59 PM CDT DERMATOPATHOLOGY LABORATORY Microscopic Description Specimen A. SKIN, left parietal scalp: Sections show acanthosis, papillomatosis, hyperkeratosis, and squamous eddies. There is a lymphohistiocytic infiltrate within the papillary dermis. 3:59 PM CDT DERMATOPATHOLOGY LABORATORY Disclaimer An external and internal positive and negative controls are appropriate for the histochemical, immunohistochemical and immunofluorescence stain(s) in this case (if any), except where stated explicitly. The performance characteristics of the stain(s) cited in this report were developed and its performance characteristic determined by the Dermatopathology Laboratory at [facility], directed by Dr. Isaak Santizo. These tests need not be, and therefore are not, approved by the [place] Food and Drug Administration. The tests are used for clinical purposes. Billing Codes Specimen Charges Stain Charges 92367 1 5 3:59 PM CDT DERMATOPATHOLOGY LABORATORY Embedded Images 3:59 PM CDT DERMATOPATHOLOGY LABORATORY Pathology/Cytolo gy TISSUE SPECIMEN FROM SKIN / Unknown 11/05/2024 3:32 PM CDT 11/07/2024 8:07 AM CDT Loly Gabriel MD LAB - PATHOLOGY/CYTOLOGY ORDERA BLEAndrey Final Result DERMATOPATHOLOGY LABORATORY [facility] - Department of Dermatology [facility] Medicine [address] [place] [address], [address] [phone] from Last [place] [address] [employer]
--- OUTSIDE RECORDS SUMMARY | 2025-01-10 10:19 | XMS_ITS | Encounter Summary ---
Author Organization [facility] Address [address] [facility] [place] [address] Care Team Providers Care Crossbow Maker Name Role Phone Unavailable Primary Care Provider Unavailabl e Encounter Details Date Type Department Care Team (Late st Contact Info) Description 08/01/2024 Lab Requisition [facility]ician [facility] - DermPath Lab [address] [facility] [place] [address] Angela Mckenna MD [address] [facility] [address] [place] [address] Social History Tobacco Use Types Packs/Day Years [...] AM CDT) Case Report Dermatopathology Report Case: [id number] Authorizing Provider: Angela Mckenna MD Collected: 08/01/2024 09:17 AM Ordering Location: [facility] Physician [facility] - Received: [...] specimen consists of a shave biopsy measuring 53b19f8 mm. Jar 0. 2:55 PM CDT DERMATOPATHOLOGY [...] characteristic determined by the Dermatopathology Laboratory at [facility], directed by Dr. Isaak Santizo. These tests need not be, and therefore are not, approved by the [place] Food and Drug Administration. The tests are used for clinical purposes. Billing Codes Specimen Charges Stain Charges 51423 1 2:55 PM CDT DERMATOPATHOLOGY LABORATORY Embedded Images 2:55 PM CDT DERMATOPATHOLOGY LABORATORY Pathology/Cytolo gy TISSUE SPECIMEN FROM SKIN / Unknown 08/01/2024 9:17 AM CDT 08/02/2024 8:00 AM CDT us Angela Mckenna MD LAB - PATHOLOGY/CYTOLOGY OR DERABLES Final Result DERMATOPATHOLOGY LABORATORY [facility] - Department of Dermatology [address], [address] [phone] documented in this encounter Visit Diagnoses Not on filedocumented in this encounter
--- OUTSIDE RECORDS SUMMARY | 2025-01-10 10:19 | XMS_ITS | Clinical Summary ---
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 Pulse 80 03/17/2017 11:00 AM HIGH SCHOOL LEARNING SUPPORT TEACHER Temperature - - Respiratory Rate - - Oxygen Saturation - - Inhaled Oxygen Concentration - - Weight 127 kg (280 lb) 03/17/2017 10:42 AM HIGH SCHOOL LEARNING SUPPORT TEACHER Height 193 cm (6' 4) 03/17/2017 10:42 AM HIGH SCHOOL LEARNING SUPPORT TEACHER Body Mass Index 34.08 03/17/2017 10:42 AM HIGH SCHOOL LEARNING SUPPORT TEACHER Plan of Treatment Health Maintenance Due Date Last Done Comments Hepatitis C Virus (HCV) Screening 1965 TdaP Immunization 1964 Cologuard 2009 Colonoscopy 2009 Colorectal Cancer Screening 2009 Immunochemical Fecal Occult Blood 2009 Pneumococcal Immunization (5 0+ years) (1 of 1 - PCV) 2014 Zoster Immunization (1 of 2) 2014 SARS-COV-2 Immunization (1 - 2023- season) 2023 Influenza Immunization (#1) 2024 Respiratory Syncytial Virus (RSV) Immunization (Adult) (1 - 1-dose 75+ series) 11/21/2039 Hepatitis B Immunization Aged Out No longer eligible based on patient's age to complete this topic Human Papillomavirus (HPV) Immunization Aged Out No longer eligible b ased on patient's age to complete this topic Meningococcal Immunization (ACWY) Aged Out No longer eligible based on patient's age to complete this topic Rotavirus Immunization Aged Out No lo nger eligible based on patient's age to complete this topic Care Teams Matrix Bath Operator Relationship Specialty Start Date End Date Lopez Barrett MD [address] [place] [address] PCP - General Family Medicine 03/17/17
--- OUTSIDE RECORDS SUMMARY | 2025-01-10 10:19 | XMS_ITS | Encounter Summary ---
Author Organization [facility] Address [address] [facility] [place] [address] Care Team Providers Care Jr. Systems Administrator Name Role Phone Unavailable Primary Care Provider Unavailabl e Encounter Details Date Type Department Care Team (Late st Contact Info) Description 11/05/2024 Lab Requisition [facility]ician [facility] - DermPath Lab [address] [place] [phone] Loly Gabriel MD [address] [place] [address] Social History Tobacco Use Types [...] Comments DERMATOPATHOLOGY Routine 11/05/2024 3:32 PM CDT documented in this encounter Results * DERMATOPATHOLOGY (11/05/2024 3:32 PM CDT) Case Report Dermatopathology Report Case: [id number] Authorizing Provider: Loly Gabriel MD Collected: 11/05/2024 03:32 PM Ordering Location: [facility] - Received: 11/07/2024 08:07 AM DermPath Lab Pathologist: Yanira Deleon MD Specimen: Skin, left parietal scalp 3:59 PM CDT DERMATOPATHOLOGY LABORATORY Final Diagnosis Specimen A. SKIN, left parietal scalp: SEBORRHEIC KERATOSIS, IRRITATED AND INFLAMED (L82.0) 5 3:59 PM CDT DERMATOPATHOLOGY LABORATORY at 1559 [...] characteristic determined by the Dermatopathology Laboratory at [facility], directed by Dr. Isaak Santizo. These tests need not be, and therefore are not, approved by the [place] Food and Drug Administration. The tests are used for clinical purposes. Billing Codes Specimen Charges Stain Charges 80896 1 3:59 PM CDT DERMATOPATHOLOGY LABORATORY Embedded Images 3:59 PM CDT DERMATOPATHOLOGY LABORATORY Pathology/Cytolo gy TISSUE SPECIMEN FROM SKIN / Unknown 11/05/2024 3:32 PM CDT 11/07/2024 8:07 AM CDT us Loly Gabriel MD LAB - PATHOLOGY/CYTOLOGY ORDERA BLES Final Result DERMATOPATHOLOGY LABORATORY [facility] - Department of Dermatology [address] [place] [address], [facility] [phone] documented in this encounter Visit Diagnoses Not on filedocumented in this encounter
--- OUTSIDE RECORDS SUMMARY | 2025-01-10 11:08 | XMS_ITS | Encounter Summary ---
Author Organization [facility] Address [address] [facility] [place] [address] Care Team Providers Care Chairman & Chief Executive Officer Name Role Phone Unavailable Primary Care Provider Unavailabl e Encounter Details Date Type Department Care Team (Late st Contact Info) Description 11/05/2024 Lab Requisition [facility] - DermPath Lab [address] [place] [phone] Loly Gabriel MD [address] [place] [address] Social History Tobacco Use Types [...] PM CDT) Case Report Dermatopathology Report Case: [id number] Authorizing Provider: Loly Gabriel MD Collected: 11/05/2024 03:32 PM Ordering Location: [facility] - Received: 11/07/2024 08:07 AM [...] determined by the Dermatopathology Laboratory at [facility], directed by Dr. Isaak Santizo. These tests need not be, and therefore are not, approved by the [place] Food and Drug Administration. The tests are used for clinical purposes. Billing Codes Specimen Charges Stain Charges 36388 1 3:59 PM CDT DERMATOPATHOLOGY LABORATORY Embedded Images 3:59 PM CDT DERMATOPATHOLOGY LABORATORY Pathology/Cytolo gy TISSUE SPECIMEN FROM SKIN / Unknown 11/05/2024 3:32 PM CDT 11/07/2024 8:07 AM CDT us Loly Gabriel MD LAB - PATHOLOGY/CYTOLOGY ORDERA BLES Final Result DERMATOPATHOLOGY LABORATORY [facility] - Department of Dermatology [address] [place] [address], [facility] [phone] documented in this encounter Visit Diagnoses Not on filedocumented in this encounter
--- OUTSIDE RECORDS SUMMARY | 2025-01-10 11:08 | XMS_ITS | Clinical Summary ---
Author Organization [facility] Address [address] [place] [address] Care Team Providers Care Soil Conservation Aide Name Role Phone Unavailable Primary Care Provider Unavailabl e Source Comments [facility],non-owned Affiliates and Associated Physician Practices is amultiple site organization consisting of ambulatory clinics and hospital sitesin [place], [place], [place] and [place]. This disclosure is being madepursuant to the Care Everywhere program and may not contain all information available regarding this patient. Last updated 18.[facility] Encounters Date Type Department Care Team Description 11/05/2024 Lab Requisition [facility] - DermPath Lab [address] [facility] [place] [phone] Loly Gabriel MD from Last 3 Months [...] PM CDT) Case Report Dermatopathology Report Case: [id number] Authorizing Provider: Loly Gabriel MD Collected: 11/05/2024 03:32 PM Ordering Location: [facility] - Received: 11/07/2024 08:07 AM [...] characteristic determined by the Dermatopathology Laboratory at [facility], directed by Dr. Isaak Santizo. These tests need not be, and therefore are not, approved by the [place] Food and Drug Administration. The tests are used for clinical purposes. Billing Codes Specimen Charges Stain Charges 44521 1 5 3:59 PM CDT DERMATOPATHOLOGY LABORATORY Embedded Images 3:59 PM CDT DERMATOPATHOLOGY LABORATORY Pathology/Cytolo gy TISSUE SPECIMEN FROM SKIN / Unknown 11/05/2024 3:32 PM CDT 11/07/2024 8:07 AM CDT Loly Gabriel MD LAB - PATHOLOGY/CYTOLOGY ORDERA BLEAndrey Final Result DERMATOPATHOLOGY LABORATORY [facility] - Department of Dermatology [facility] Medicine [address] [place] [address], [address] [phone] from Last 3 [place] [address] [employer]
--- OUTSIDE RECORDS SUMMARY | 2025-01-10 11:08 | XMS_ITS | Clinical Summary ---
Author Organization [facility] Address [address] [place] [address] Phone Care Team Providers Care Imaging Assistant Name Role Phone Lopez Barrett MD Primary [...] Comments Blood Pressure 140/86 03/17/2017 11:00 AM GRAIN PICKER Pulse 80 03/17/2017 11:00 AM GRAIN PICKER Temperature - - Respiratory Rate - - Oxygen Saturation - - Inhaled Oxygen Concentration - - Weight 127 kg (280 lb) 03/17/2017 10:42 AM GRAIN PICKER Height 193 cm (6' 4) 03/17/2017 10:42 AM GRAIN PICKER Body Mass Index 34.08 03/17/2017 10:42 AM GRAIN PICKER Plan of Treatment Health Maintenance Due Date [...] age to complete this topic Care Teams Imaging Assistant Relationship Specialty Start Date End Date Lopez Barrett MD [address] [place] [address] PCP - General Family Medicine 03/17/17
--- OUTSIDE RECORDS SUMMARY | 2025-01-10 11:08 | XMS_ITS | Encounter Summary ---
Author Organization [facility] Address [address] [facility] [place] [address] Care Team Providers Care Monorail Crane Operator Name Role Phone Unavailable Primary Care Provider Unavailabl e Encounter Details Date Type Department Care Team (Late st Contact Info) Description 08/01/2024 Lab Requisition [facility] - DermPath Lab [address] [facility] [place] [address] Angela Mckenna MD [address] [facility] [address] [place] [address] Social History Tobacco Use Types Packs/Day Years [...] AM CDT) Case Report Dermatopathology Report Case: [id number] Authorizing Provider: Angela Mckenna MD Collected: 08/01/2024 09:17 AM Ordering Location: [facility] Physician [facility] - Received: 08/02/2024 08:00 AM DermPath [...] specimen consists of a shave biopsy measuring 05q73s9 mm. Jar 0. 2:55 PM CDT DERMATOPATHOLOGY [...] characteristic determined by the Dermatopathology Laboratory at [facility], directed by Dr. Isaak Santizo. These tests need not be, and therefore are not, approved by the [place] Food and Drug Administration. The tests are used for clinical purposes. Billing Codes Specimen Charges Stain Charges 43355 1 2:55 PM CDT DERMATOPATHOLOGY LABORATORY Embedded Images 2:55 PM CDT DERMATOPATHOLOGY LABORATORY Pathology/Cytolo gy TISSUE SPECIMEN FROM SKIN / Unknown 08/01/2024 9:17 AM CDT 08/02/2024 8:00 AM CDT us Angela Mckenna MD LAB - PATHOLOGY/CYTOLOGY OR DERABLES Final Result DERMATOPATHOLOGY LABORATORY [facility] - Department of Dermatology [address], [address] [phone] documented in this encounter Visit Diagnoses Not on filedocumented in this encounter
--- NOTE | 2025-01-10 11:10 | ED_ITS ---
HPI - Extremity Injury (Upper) General Chief Complaint: Extremity Injury, Upper Stated Complaint: R wrist injury Time Seen by Provider: 01/10/25 09:50 Source: patient Mode of arrival: ambulatory Limitations: no limitations History of Present Illness HPI narrative: Patient is a 59-year-old male who presents to the ED with report of right wrist pain. Patient reports he was moving a mattress yesterday and slipped and fell. Attempted to catch himself with his right wrist. Hyperextended his right wrist. Complains of pain and swelling, limited range of motion to his right wrist since then. Denies any other injury. Denies head injury or LOC. Denies numbness. Related Data Allergies Allergy/AdvReac Type Severity Reaction Status Date / Time No Known Allergies Allergy Verified 01/10/25 10:40 Review of Systems Review of Systems: All systems reviewed & are unremarkable except as noted in HPI. All systems reviewed & are unremarkable except as noted in HPI and below PMFSH Social History Social History Social History: Smoking status: Never smoker Second hand tobacco smoke exposure: No Alcohol intake: never Substance use: never Substance use type: does not use Do You Feel Safe in your Home?: Yes Lack of Transportation: No Lack of Food: Never True Current Housing: I Have Housing Concerned About Future Housing: No Difficulty Paying Gas/Electric Bills: No Difficulty Paying for Meds: No Currently Unemployed: No Education: Trade/Vocational Certificate Difficulty w/ Childcare or Family Care: No Living arrangements: with family Occupation/Education: occupation Gender identity (if verbalized by the patient): Female Sexual Orientation (if Verbalized by the Patient): Straight or Heterosexual Spiritual care concerns: No Exam Narrative: GENERAL: Well appearing, well-nourished, non-toxic, in no acute distress. HEAD: Normocephalic, atraumatic. RESPIRATORY: Airway patent, respirations nonlabored. CARDIOVASCULAR: Regular rate and rhythm. Radial pulses strong and easily palpable MUSCULOSKELETAL: Limited flexion/extension ROM of R wrist d/t pain, mild swelling diffusely throughout R wrist and carpal region. TTP along distal ulnar region. No snuff box tenderness. Sensation intact. SKIN: Warm, dry, normal color. NEURO: A&O X3. Speech clear. No ataxic movements. PSYCHIATRIC: Appropriate mood and affect. Normal interaction. Course Vital Signs Vital signs: Vital Signs Temperature 97.7 F 01/10/25 09:49 Pulse Rate 61 01/10/25 09:49 Respiratory Rate 17 01/10/25 09:49 Blood Pressure 177/91 H 01/10/25 09:49 Pulse Oximetry 98 01/10/25 09:49 Oxygen Delivery Room Air 01/10/25 09:49 Temperature 97.7 F 01/10/25 09:49 Pulse Rate 61 01/10/25 09:49 Respiratory Rate 17 01/10/25 09:49 Blood Pressure 177/91 H 01/10/25 09:49 Pulse Oximetry 98 01/10/25 09:49 Oxygen Delivery Room Air 01/10/25 09:49 MDM - Extremity Injury (Upper) MDM Narrative Medical decision making narrative: Patient?s injury is consistent with musculoskeletal etiology. No signs of neurologic or vascular compromise on physical examination. Compartments are soft without signs of compartment syndrome. XR showing mildly displaced likely triquetral fracture. Pain is consistent with exam and injury/FOOSH. Patient placed in ulnar gutter splint. Patient is felt to be stable for discharge home and further outpatient management and treatment. Will be referred to orthopedics for further evaluation. Advised to call office today. Wear splint until seen by orthopedics. Discussed rice therapy, will prescribe short course of pain medication for home. Given return precautions. Discharged in stable condition. Medical Records Attestation: I reviewed the patient's medical records. Imaging Data Attestation: I personally reviewed and interpreted this imaging study as follows: Radiologist's impression: ITS Impressions Wrist X-Ray 01/10/25 10:13 IMPRESSION: 1. Small likely mildly displaced fracture fragment at the dorsal aspect of the carpus likely arising from the triquetrum. Discharge Plan Discharge Clinical Impression: Fracture of triquetral bone of right wrist Patient Disposition: Home Condition: Stable Instructions: Antibiotic Form, Hand Fracture (ED), Splint Care (ED) Additional Instructions: Follow-up with orthopedics for further evaluation. Call office today to make appointment. Wear splint until seen by orthopedics. Recommend Tylenol as needed for pain. [employer] as needed for more severe pain. Keep arm elevated whenever possible, ice as needed. Return to the ED if you experience worsening or severe pain or swelling, recurrent fall or injury, numbness, or any other symptoms of concern. Patient Language: Jamaican Prescriptions: New hydrocodone-acetaminophen 5-325 mg tablet 1 tablet PO Q6H PRN (Reason: pain) Qty: 15 0RF No Action ticagrelor [Brilinta] 90 mg tablet 90 mg PO Q12H Qty: 60 1RF aspirin 81 mg Tablet,Delayed Release (Dr/Ec) 81 mg PO QAM Qty: 30 0RF atorvastatin 40 mg Tablet 80 mg PO DAILY Qty: 30 0RF Follow-up/Referrals: Lopez Barrett MD [Primary Care Provider, Family Practice] Oscar Clemente MD [Physician, Orthopedics] Referral Note: ORTHOPEDICS Stand Alone Forms: Work/School Release IP Time of Disposition: 11:16
--- NOTE | 2025-01-28 11:17 | PC.NURSE ---
LATE ENTRY This note is being entered to document information to the patient's record. The following information was omitted on [01/10/25 ], by [Carlota Mclaughlin RN]. R wrist, ulnar gutter splint applied.
== END 2025-01-10 11:33 | disposition home or self-care (01) ==
PROVIDERS: Emergency Provider Physician Assistant; PCP Family Medicine
DX: S62.111A Displaced fracture of triquetrum [cuneiform] bone, right wrist, initial encounter for closed fracture (principal); W01.0XXA Fall on same level from slipping, tripping and stumbling without subsequent striking against object, initial encounter
CPT/HCPCS: 29125; 73110; 99284